=== PATIENT | male | born 1955 | race African-American/Black ===

== ENCOUNTER → 2016-08-10 | Outpatient (CLI) | payer BC ==
--- NOTE | 2016-08-10 12:16 | XR ---
Cervical spine HISTORY: Neck pain 5 views of the cervical spine on 6 images correlated to prior exam 30 Sep 2014 There is spondylosis especially at C4-5, C5-6 and C6-7 with associated loss of disc height as on prio r exam. Loss of lordosis is stable. Retrolisthesis grade 1 present at C5-6. Vacuum phenomenon present at C6-7. Prevertebral soft tissues are stable and unremarkable. Multilevel facet arthropathy. Forami nal encroachment present at C6-7, C5-C6 bilaterally and C4-5 right greater than left. IMPRESSION: Degenerative disc disease, facet arthropathy, multilevel foraminal encroachment as on bairon or exam. See report MR cervical spine 26 November 2014
== END ==
LOC: RADXRMAIN 10:50
PROVIDERS: ATTEND Internal Medicine
DX: M99.71 Connective tissue and disc stenosis of intervertebral foramina of cervical region (principal); M50.30 Other cervical disc degeneration, unspecified cervical region; M46.82 Other specified inflammatory spondylopathies, cervical region
CPT/HCPCS: 72050

== ENCOUNTER → 2017-02-18 | Outpatient (CLI) | payer BC ==
[2017-02-18 12:39] LABS: ALT 61 U/L (21-72); AST 41 U/L (17-59); Alkaline Phosphatase 55 U/L (38-126); Anion Gap 10 mmol/L; Bilirubin, Delta 0.2 mg/dL (0.0-0.2); Blood Urea Nitrogen 19 mg/dL (9-20); Carbon Dioxide 27 mmol/L (22-30); Chloride 105 mmol/L (98-107); Cholesterol 233 mg/dL (<200); Glucose 91 mg/dL (74-99); HDL Cholesterol 89 mg/dL (40-60); Non-African American GFR(MDRD) >60 (>60 ml/min/1.73 sqM); Potassium 4.6 mmol/L (3.5-5.1); Sodium 142 mmol/L (137-145); Total Bilirubin 0.9 mg/dL (0.2-1.3); Total Protein 7.7 g/dL (6.3-8.2)
[2017-02-18 13:09] LABS: Prostate Specific Antigen 3.85 ng/mL (0.00-4.00)
== END | disposition home or self-care (01) ==
LOC: LABWHC1 10:53
PROVIDERS: ATTEND Internal Medicine
DX: E78.5 Hyperlipidemia, unspecified (principal); I10 Essential (primary) hypertension; C61 Malignant neoplasm of prostate
CPT/HCPCS: 36415; 80051; 80061; 80076; 82565; 82947; 84153; 84520

== ENCOUNTER → 2017-11-14 | Outpatient (CLI) | payer BC | END | disposition home or self-care (01) | LOC: LABWHC1 08:27 | PROVIDERS: ATTEND Urology | DX: N40.1 Benign prostatic hyperplasia with lower urinary tract symptoms (principal); N13.8 Other obstructive and reflux uropathy | CPT/HCPCS: 36415; 84153 ==

== ENCOUNTER → 2019-06-24 | Outpatient (CLI) | payer BC ==
--- NOTE | 2019-06-24 10:08 | MR ---
EXAMINATION TYPE: MR cervical spine wo con DATE OF EXAM: 06/24/2019 COMPARISON: 08/25/2016 HISTORY: Cervical pain TECHNIQUE: Multiplanar, multisequence images of the cervical spine were acquired. C2-C3: Stable broad-based disc protrusion greater paracentrally to the left. Neural foramina remain p atent. Mild effacement of thecal sac. No Canal stenosis. Mild uncovertebral joint particularly. Findi ngs stable. C3-C4: Degenerative disc disease with broad-based central disc herniation abuts the anterior margin o f the spinal cord is mildly progressed from the prior exam. Uncovertebral joint hypertrophy with mild left and moderate to severe right foraminal encroachment. Greater right-sided facet arthropathy cont ributes. C4-C5: Severe degenerative disc disease with facet arthropathy and uncovertebral joint hypertrophy re sulting in mild to moderate bilateral foraminal encroachment. Disc osteophyte complex results in mild effacement of thecal sac and borderline canal stenosis. Findings are stable. C5-C6: Severe degenerative disc disease with broad-based disc bulging effacing the thecal sac and abu tting the anterior margin the spinal cord compatible with mild to moderate canal stenosis. Moderate t o severe bilateral foraminal encroachment greater than right with uncovertebral joint hypertrophy. Fi ndings similar to the prior exam. C6-C7: Severe degenerative disc disease with broad-based disc bulging. There is a moderate bilateral foraminal encroachment and borderline to mild central stenosis. No focal herniation. Findings similar to the prior exam. C7-T1: No evidence for degenerative disc disease. No disc bulge/herniation or protrusion. No Canal stenosis. Foramina are patent bilaterally. Cervical segments are intact. There is loss of the normal cervical lordosis with multilevel severe d egenerative disc disease, uncovertebral joint hypertrophy and facet arthropathy. Cervical spinal cor d is of normal signal. Craniovertebral junction relationships are within normal limits. IMPRESSION: 1. Multilevel severe degenerative disc disease with multilevel disc bulging or protrusions result in multilevel canal stenosis which appears similar to the prior exam. Multilevel foraminal encroachment also again noted. 2. There is interval mild progression of a broad-based disc herniation C3-C4 which abuts the anterior margin of the spinal cord.
== END | disposition home or self-care (01) ==
LOC: RADMRIMAIN 09:28
PROVIDERS: ATTEND Nurse Practitioner Adult Health
DX: M48.02 Spinal stenosis, cervical region (principal); M50.21 Other cervical disc displacement, high cervical region; M50.31 Other cervical disc degeneration, high cervical region
CPT/HCPCS: 72141

== ENCOUNTER → 2020-09-04 | Outpatient (CLI) | payer BC, MEDICARE ==
--- NOTE | 2020-09-04 17:00 | ECHOF ---
Referral Reason:R07.9 chest pain, R06.02 SOB, R22.41 MEASUREMENTS -------- HEIGHT: 165.1 cm WEIGHT: 69.9 kg BP: RVIDd: 2.7 cm (< 3.3) IVSd: 1.0 cm (0.6 - 1.1) LVIDd: 4.1 cm (3.9 - 5.3) LVPWd: 1.2 cm (0.6 - 1.1) IVSs: 1.2 cm LVIDs: 2.7 cm LVPWs: 1.5 cm LA Diam: 3.3 cm (2.7 - 3.8) LAESV Index (A-L): 38.79 ml/m Ao Diam: 2.6 cm (2.0 - 3.7) AV Cusp: 1.7 cm (1.5 - 2.6) LA Diam: 3.3 cm (2.7 - 3.8) MV EXCURSION: 16.095 mm (> 18.000) MV EF SLOPE: 82 mm/s (70 - 150) EPSS: 0.4 cm MV E Vipul: 0.75 m/s MV DecT: 204 ms MV A Vipul: 0.67 m/s MV E/A Ratio: 1.12 RAP: 5.00 mmHg RVSP: 29.70 mmHg FINDINGS -------- Sinus rhythm. This was a technically good study. LV size, wall thickness and systolic function are normal, with an EF greater than 55%. The left arpan tricular size is normal. The right ventricle is normal in size. LA is moderately dilated 34-39 ml/m2 The right atrial size is normal. The aortic valve is trileaflet, and appears structurally normal. No aortic stenosis or regurgitation. Mild mitral regurgitation is present. Mild tricuspid regurgitation present. Right ventricular systolic pressure is normal at < 35 mmHg. There is no pulmonic regurgitation present. The aortic root size is normal. There is no pericardial effusion. CONCLUSIONS -------- 1. LV size, wall thickness and systolic function are normal, with an EF greater than 55%. 2. The left ventricular size is normal. 3. The right ventricle is normal in size. 4. LA is moderately dilated 34-39 ml/m2 5. The right atrial size is normal. 6. The aortic valve is trileaflet, and appears structurally normal. No aortic stenosis or regurgitati on. 7. Mild mitral regurgitation is present. 8. Mild tricuspid regurgitation present. 9. The aortic root size is normal. 10. There is no pericardial effusion. BARREL CAP SETTER: Narda Alamo RDCS
== END | disposition home or self-care (01) ==
LOC: RADECHMAIN 14:54
PROVIDERS: ATTEND Internal Medicine
DX: I08.1 Rheumatic disorders of both mitral and tricuspid valves (principal)
CPT/HCPCS: 93306

== ENCOUNTER → 2021-03-30 | Outpatient (CLI) | payer BC | END | disposition home or self-care (01) | LOC: LABWHC1 11:10 | PROVIDERS: ATTEND Nurse Practitioner | DX: Z11.59 Encounter for screening for other viral diseases (principal); I10 Essential (primary) hypertension | CPT/HCPCS: 36415; 82947; 83036 ==

== ENCOUNTER → 2021-11-01 | Outpatient (CLI) | payer BC | END | disposition home or self-care (01) | LOC: LABWHC1 09:51 | PROVIDERS: ATTEND Urology | DX: R97.20 Elevated prostate specific antigen [PSA] (principal) | CPT/HCPCS: 36415; 84153 ==

== ENCOUNTER → 2022-06-17 | Outpatient (CLI) | payer BC ==
--- NOTE | 2022-06-17 15:29 | NM ---
EXAMINATION TYPE: NM bone scan whole body DATE OF EXAM: 06/17/2022 COMPARISON: NONE HISTORY: C6 T1 Delayed whole-body scanning was performed following the injection of 21.3 mCi Tc 99m MDP. Images wer e acquired 3.25 hours post injection. FINDINGS: Small amount of increased radiotracer accumulation is in the midline potentially could be related to the sagittal suture. There is mild uptake within the posterior right mid cervical spine. This can be degenerative in natur e. Mild diffuse uptake is within joint spaces. This may be more focal in the right first metatarsophalan geal joint space. No suspicious photopenic defects or suspicious hyperintense uptake is identified to suggest metastati c disease. IMPRESSION: 1. Mild uptake within the midline calvarium. Plain film correlation recommended. This may be related to sagittal suture. Metastatic disease is less likely but within the differential. 2. No additional suspicious areas for metastatic disease. Findings appear more suggestive for degener ative joint changes
== END | disposition home or self-care (01) ==
LOC: RADNMMAIN 10:19
PROVIDERS: ATTEND Urology
DX: C61 Malignant neoplasm of prostate (principal); R93.7 Abnormal findings on diagnostic imaging of other parts of musculoskeletal system
CPT/HCPCS: 78306; A9503

== ENCOUNTER → 2022-06-18 | Outpatient (CLI) | payer BC ==
--- NOTE | 2022-06-21 10:22 | MR ---
EXAMINATION TYPE: MR Prostate wo/w con DATE OF EXAM: 06/18/2022 9:08 AM COMPARISON: None. CLINICAL INDICATION:Male, 67 years old with history of C61 MALIGNANT NEOPLASM OF PROSTATE; TECHNIQUE: Multi-planar, multi-sequence imaging of the pelvis is performed prior to and following the uncomplicated administration of bolus intravenous gadolinium. CONTRAST: 7 Gadavist Interpretive Criteria: PI-RADS v2.1 SERUM PSA: 10.2 on 03/30/2021, 9.1 on 11/01/2021, SURGICAL PATHOLOGY: Positive adenocarcinoma multiple biopsy sites bilaterally. FINDINGS: Prostatic dimensions: 3.5 x 3.4 x 2.9 cm. "Bullet" Volume:22.59 (PSA density=0.40 ng/mL/mL) CENTRAL GLAND (Central and Transition Zones/CZ+TZ): Somewhat diffuse low T2 signal without focal suspicious lesion, without suspicious lesion. (PI-RADS 2 ) PERIPHERAL ZONE (PZ): No areas of diffusion restriction definitively visualized. No evidence of masslike abnormality, or localized perfusional hypervascularity, to further suggest a focus of clinically significant prostate cancer. (PI-RADS 2) SEMINAL VESICLES (SV): Symmetric and unremarkable. PERIPROSTATIC TISSUES: Unremarkable. LYMPH NODES: No enlarged pelvic lymph node. REMAINING PELVIS: Bladder wall is within normal limits given distention. No abnormal free or organized intrapelvic fluid collection. No pathologic bowel dilation or mural thickening. Nadia anal high T2 signal lesion with thin septation measuring up to 14 x 7 mm in the left external sp hincter muscle. OSSEOUS STRUCTURES: No suspicious osseous abnormality. IMPRESSION: 1. No specific features for high-risk prostate cancer. Maximum PI-RADS score: 2. 2. No suspicious osseous lesion. No lymphadenopathy. No evidence of prostate adenocarcinoma involving the periprostatic tissues. 3. Nadia anal high T2 signal lesion with thin septation measuring up to 14 x 7 mm in the left external sphincter muscle. This is only in the [id number] on T2-weighted imaging and is favored represent a cyst.
== END | disposition home or self-care (01) ==
LOC: RADMRIMAIN 07:58
PROVIDERS: ATTEND Urology
DX: C61 Malignant neoplasm of prostate (principal); N32.89 Other specified disorders of bladder
CPT/HCPCS: 72197; A9585

== ENCOUNTER → 2022-08-15 | Outpatient (CLI) | payer BC ==
[2022-08-15 18:13] LABS: Basophils # (A) 0.05 X 10*3/uL (0.00-0.10); Basophils % (A) 0.8 %; Eosinophils # (A) 0.19 X 10*3/uL (0.04-0.35); HCT 42.2 % (39.6-50.0); HGB 13.7 g/dL (13.0-17.0); Immature Grans, Automated 0.3 %; Lymphocytes # (A) 2.95 X 10*3/uL (0.90-5.00); Lymphocytes % (A) 45.9 %; MCH 32.7 pg (27.0-32.0); MCHC 32.5 g/dL (32.0-37.0); MCV 100.7 fL (80.0-97.0); Monocytes # (A) 0.69 X 10*3/uL (0.20-1.00); Monocytes % (A) 10.7 %; NRBC Per 100 WBC 0 /100 WBCS (0.0-0.0); Neutrophils # (A) 2.53 X 10*3/uL (1.80-7.70); Neutrophils % (A) 39.3 %; Platelet Count 190 X 10*3/uL (140-440); RBC 4.19 X 10*6/uL (4.40-5.60); RDW 13.3 % (11.5-14.5); WBC 6.43 X 10*3/uL (4.50-10.00)
[2022-08-15 18:59] LABS: African American GFR (CKD) 71.6 (60.0-200.0); Anion Gap 10.5 mmol/L (10.00-18.00); BUN/Creat Ratio 14.33 Ratio (12.00-20.00); Blood Urea Nitrogen 17.2 mg/dL (9.0-27.0); Carbon Dioxide 28.5 mmol/L (20.0-27.5); Non-African American GFR(CKD) 61.8 (60.0-200.0); Potassium 4.5 mmol/L (3.5-5.5)
[2022-08-15 19:34] LABS: Appearance,Urine Clear (Clear); Bilirubin,Urine Negative (Negative); Blood,Urine Negative (Negative); Color,Urine Yellow (Yellow); Ketones,Urine Negative (Negative); Nitrite,Urine Negative (Negative); PH, Urine 6.5 (5.0-8.0); Specific Gravity,Urine 1.015 (1.001-1.030); Urobilinogen,Urine 0.2 (0.2,1.0)
[2022-08-15 19:45] LABS: Bacteria,Urine 2+ /HPF (None Seen)
== END | disposition home or self-care (01) ==
LOC: LABPAT 11:56
PROVIDERS: ATTEND Urology
DX: Z01.812 Encounter for preprocedural laboratory examination (principal); C61 Malignant neoplasm of prostate; R31.29 Other microscopic hematuria; R53.83 Other fatigue
CPT/HCPCS: 80048; 81001; 85025; 87086

== ENCOUNTER 2022-08-25 05:52 | Observation (INO) | payer BC, MEDICARE ==
--- NOTE | 2022-08-16 12:57 | P.HPIHPCON ---
History of Present Illness H&P Date: 08/16/22 Chief Complaint: Prostate cancer This is a 67 -year-old male with history of high volume [place] 6 (3+3)prostate cancer, initially managed with active surveillance, repeat biopsy there was increased volume of disease. . I discussed with him for his prostate cancer the option of radiation, continued active surveillance versus robotic prostatectomy. Surgery were discussed with him in detail. He agreed to proceed with a robotic radical prostatectomy Discussed with him the risk which includes but not limited to bleeding, infection, urinary incontinence, erectile dysfunction, strictures, potential of cancer recurrence. Potential of needing additional treatments. Discussed also potential of injury to nearby organs which includes but not limited to the bladder, rectum, bowel. Risk of anesthesia was discussed with him which includes but not limited to, heart attack, stroke, blood clots. He understood all the risk and agreed to proceed Consent for Procedure: I have explained the operation/procedure to the patient, including the risks, b enefits, side effects, alternative therapies (including not receiving the proposed treatment or service), the likelihood of the patient achieving his/her goals, and potential recuperation problems for the procedure/sedation/analgesia, as well as any blood products, if indicated. I also explained to the patient the risks, benefits and side effects of the alternatives, as well as the risks related to not receiving the proposed procedure, care, treatment, or services. Surgical - Exam - General no distress, no pain - Eyes normal ocular movement, no pale - ENT normal nares, normal mucosa - Respiratory normal expansion, normal respiratory effort - Abdomen Abdomen: soft, non tender - Psychiatric oriented to time, oriented to person, oriented to place Assessment and Plan Assessment: OR for robotic radical prostatectomy
[2022-08-23 12:50] VITALS: BMI 24.2
[~2022-08-25 05:52] MED LIST: CLINDAMYCIN 600 MG in DEXTROSE 5% IN WATER 50 ML IVPB PRN; GENTAMICIN 120 MG in SODIUM CHLORIDE 0.9% 100 ML IVPB PRN; HEPARIN SODIUM,PORCINE/PF 5,000 UNIT/0.5 ML SYRINGE SQ PRN
[2022-08-25] MEDS: LACTATED RINGERS 1,000 ML IV SCH ×3 (06:35→07:27)
[2022-08-25] MEDS ORDERED: ONDANSETRON 4 MG/2 ML VIAL ONE (06:51)
[2022-08-25] MEDS ORDERED: MIDAZOLAM 2 MG/2 ML VIAL IVP ONE (06:56)
[2022-08-25] MEDS ORDERED: DEXAMETHASONE SOD PHOSPHATE 4 MG/ML 1 ML VIAL IVP ONE (07:12)
[2022-08-25] MEDS ORDERED: PROPOFOL 10 MG/ML 20 ML VIAL IV ONE (07:24)
[2022-08-25] MEDS ORDERED: LIDOCAINE 2% INJ 20 MG/ML (2 ML VIAL) ONE (07:24)
[2022-08-25] MEDS ORDERED: MIDAZOLAM 2 MG/2 ML VIAL ONE (07:24)
[2022-08-25] MEDS ORDERED: PHENYLEPHRINE-0.9% NACL SYG 1,000 MCG/10 ML SYRINGE ONE (07:24)
[2022-08-25] MEDS ORDERED: GLYCOPYRROLATE 0.2 MG/ML 2 ML VIAL ONE (07:24)
[2022-08-25] MEDS ORDERED: SUGAMMADEX SODIUM 500 MG/5 ML SDV IV ONE (07:24)
[2022-08-25] MEDS ORDERED: ePHEDrine 50 MG/ML 1 ML VIAL ONE (07:24)
[2022-08-25] MEDS ORDERED: fentaNYL (PF) 50 MCG/ML 2 ML AMP ONE (07:24)
[2022-08-25] MEDS ORDERED: ROCURONIUM 10 MG/ML (5 ML VIAL) IV ONE (07:24)
[2022-08-25] MEDS ORDERED: SUCCINYLCHOLINE CHLORIDE 200 MG/10 ML VIAL IV ONE (07:24)
[2022-08-25] MEDS ORDERED: BUPIVACAINE (PF) 0.25% 30 ML VIAL SQ ONE ×2 (09:16)
[2022-08-25] MEDS ORDERED: LACTATED RINGERS 1,000 ML IV ONE (10:36)
[2022-08-25] MEDS: HYDROmorphone 0.5 MG/0.5 ML SYRINGE IVP PRN ×3 (12:15→13:29)
--- NOTE | 2022-08-25 12:22 | P.OP ---
Date of Procedure: 08/25/22 Preoperative Diagnosis: Prostate cancer Postoperative Diagnosis: Same Procedure(s) Performed: Robotic-assisted laparoscopic radical prostatectomy Implants: none Anesthesia: STANISLAV Surgeon: Ryan Ramon Estimated Blood Loss (ml): 200 Pathology: other (prostate and bilateral seminal vesicles) Condition: stable Disposition: PACU Indications for Procedure: This is a 67 -year-old male with history of high volume [place] 6 (3+3)prostate cancer, initially managed with active surveillance, repeat biopsy there was increased volume of disease. . I discussed with him for his prostate cancer the option of radiation, continued active surveillance versus robotic prostatectomy. Surgery were discussed with him in detail. He agreed to proceed with a robotic radical prostatectomy Discussed with him the risk which includes but not limited to bleeding, infection, urinary incontinence, erectile dysfunction, strictures, potential of cancer recurrence. Potential of needing additional treatments. Discussed also potential of injury to nearby organs which includes but not limited to the bladder, rectum, bowel. Risk of anesthesia was discussed with him which includes but not limited to, heart attack, stroke, blood clots. He understood all the risk and agreed to proceed Description of Procedure: After preoperative antibiotics were started, the patient was taken to the operating room. Anesthesia was induced and the patient was placed in a low lithitomy position, with adequate padding of the pressure points, shoulders, back, legs and arms. He was then prepped and draped in the standard fashion. A critical pause was performed using two patient identifiers. A 16F avalos catheter was placed to gravity drainage. A pneumo-peritoneum was created with placement of a Veress needle to 20 mm Hg without complication, and a 8 Fr trocar was placed above the umbillicus. Under direct vision a 8mm robotic ports was placed lateral to each rectus slightly below the camera port. The left iliac fossa 8mm port was placed. The right trading assistant right iliac fossa 12mm port and right paramedian 5mm portwere placed. After the patient was placed in the trendelenberg position, the robot was then docked to the 8mm robotic ports and then each robotic arm and tower was checked in relation to the patient's legs and hands to avoid inadvertent compression. The peritoneal cavity was inspected. An inverted U-shaped incision began laterally to the left medial umbilical ligament and extended high across the midline to the right umbilical ligament. The limbs of the "U" extended to the level of the vasa on both sides. We next developed the preperitoneal space and the space of Retzius. Cautery was used to dissected the bladder away from the prostate. After the anterior bladder neck was incised and the bladder entered the the posterior bladder neck was exposed and the ureteral orifces identified. The posterior bladder neck was then incised and dissected away from the prostate. The vas and the seminal vesicles were now exposed and dissected to their insertions into the prostate and were not spared. The posterior layer of the Denonvillier's fascia was incised to enter pearl the plane between prostate and perirectal fat. Each lateral pedicle was controlled with clips and cautery for hemostasis. Complete nerve preservation was performed bilaterally. Of note patient had significant amount of fibrosis posteriorly which made the dissection very challenging, as there was no clear anatomical plane for the dissection The puboprostatic ligament was incised where it inserted into the apex of the prostate and a plane between urethra and dorsal venous complex developed to expose the anterior urethral surface. The anterior wall of the urethra was transected with the cut setting a few millimeters distal to the apex of the prostate. The dorsal vein was ligated using 3-0 V lock The urethrovesical anastomosis was performed . the posterior denovillers was reapproximated using 3-0 V lock. A 6 and 6 inch 3-0 V-Lock suture was used to anastomose the urethra and bladder, starting at the 6:00 posterior position. Mucosa was secured in every stitch, to ensure a mucosa to mucosa anastomosis. The stitch was regularly cinched and the anastomosis tightened. Care was taken to not violate the ureteral orifices. The Avalos catheter was advanced, the bladder filled, and the anastomosis was tested, as described above. Anastomsis was watertight at 200 mL The periumbilical fascia was closed with 1-0-PDS suture in running fashion. All ports were closed with a subcuticular 4-0 monocryl and Dermabond. Sponge, instrument, and needle counts were correct at the end of the case x2. All specimens including prostate and lymph nodes were sent to pathology for diagnosis and will be available in a week. The patient tolerated the surgery well and without complication. He awoke without difficulty and was taken to the recovery room in stable condition
[2022-08-25] MEDS: D5-0.45% NACL WITH KCL 20MEQ/L 1,000 ML IV SCH ×2 (14:09→21:43)
[2022-08-25] MEDS: HYDROmorphone 1 MG/ML 1 ML SYRINGE IVP PRN ×3 (15:45→22:48)
[2022-08-25] MEDS: HEPARIN SODIUM,PORCINE/PF 5,000 UNIT/0.5 ML SYRINGE SQ SCH ×2 (15:47→23:52)
--- NOTE | 2022-08-25 16:37 | P.ANPRN ---
Procedure Note - Anesthesia - Nerve Block Performed Bilateral Erector Spinae Single Time Out Performed: Yes Date of Procedure: 08/25/22 Procedure Start Time: 06:55 Procedure Stop Time: 07:02 Location of Patient: PreOp Indication: Acute Post-Operative Pain, Requested by Surgeon Sedation Type: Sedate with meaningful contact maintained Preparation: Sterile Prep Position: Prone Needle Types: Pajunk Needle Gauge: 21 Ultrasound used to visualize needle placement: Yes Ultrasound used to observe medication spread: Yes Blood Aspirated: No Pain Paresthesia on Injection Noted: No Resistance on Injection: Normal Image Stored and Saved: Yes Events: Uneventful and Well Tolerated (Ropivacaine 0.5% 15 mL plus normal saline 10 mL plus dexamethasone 4 mg given bilaterally at L1)
[2022-08-25] MEDS: KETOROLAC 15 MG/ML 1 ML VIAL IVP SCH ×2 (17:45→23:51)
[2022-08-25] MEDS: NITROFURANTOIN MONOHYD/M-CRYST 100 MG CAP PO SCH (19:54)
[2022-08-26] MEDS: D5-0.45% NACL WITH KCL 20MEQ/L 1,000 ML IV SCH ×3 (05:24→20:48)
[2022-08-26] MEDS: KETOROLAC 15 MG/ML 1 ML VIAL IVP SCH ×4 (05:24→23:41)
[2022-08-26] MEDS: HEPARIN SODIUM,PORCINE/PF 5,000 UNIT/0.5 ML SYRINGE SQ SCH ×3 (08:35→23:41)
[2022-08-26] MEDS: amLODIPine 5 MG TAB PO SCH (08:35)
[2022-08-26] MEDS: NITROFURANTOIN MONOHYD/M-CRYST 100 MG CAP PO SCH ×2 (08:35→20:48)
[2022-08-26] MEDS: METOPROLOL TARTRATE 25 MG TAB PO SCH (08:35)
[2022-08-26] MEDS: HYDROmorphone 1 MG/ML 1 ML SYRINGE IVP PRN (10:30)
[2022-08-26] MEDS ORDERED: HYDROcodone/APAP 5-325MG 1 EACH TAB PO PRN (11:00)
[2022-08-26] MEDS: LACTATED RINGERS 1,000 ML IV SCH (20:44)
[2022-08-27 02:19] VITALS: TEMP 98.6
[2022-08-27] MEDS: D5-0.45% NACL WITH KCL 20MEQ/L 1,000 ML IV SCH (04:04)
[2022-08-27] MEDS: KETOROLAC 15 MG/ML 1 ML VIAL IVP SCH (05:44)
[2022-08-27 08:17] VITALS: BP 148/85; PULSE 80; RESP 17
[2022-08-27] MEDS: HEPARIN SODIUM,PORCINE/PF 5,000 UNIT/0.5 ML SYRINGE SQ SCH (09:41)
[2022-08-27] MEDS: amLODIPine 5 MG TAB PO SCH (09:41)
[2022-08-27] MEDS: METOPROLOL TARTRATE 25 MG TAB PO SCH (09:41)
[2022-08-27] MEDS: NITROFURANTOIN MONOHYD/M-CRYST 100 MG CAP PO SCH (09:41)
--- NOTE | 2022-08-27 09:52 | P.DS ---
Providers Date of admission: 08/26/22 08:07 Attending physician: Ryan Ramon MD Primary care physician: Nicholas Fiore [facility] Course: This is a 67-year-old male with history of prostate cancer. Underwent a robotic radical prostatectomy on August 25. Please see operative dated August 25 for surgery details. Patient was admitted to the hospital postoperatively. He was having incision pain on postoperative day #1, which was controlled with pain medications. Patient pain significantly improved on postop day #2 and he was discharged home on postop day #2. At time of discharge was tolerating a diet, ambulating, pain was controlled Plan - Discharge Summary Discharge Rx Participant: No New Discharge Prescriptions: New Ketorolac [Toradol] 10 mg PO Q6HR PRN #15 tab PRN Reason: Pain HYDROcodone/APAP 5-325MG [Sherwood 5-325] 1 tab PO Q4HR PRN 3 Days #6 tab PRN Reason: Pain Ciprofloxacin HCl [Cipro] 250 mg PO Q12HR #6 tablet No Action amLODIPine [Norvasc] 5 mg PO QAM Metoprolol Tartrate 25 mg PO QAM Nitrofurantoin Monohyd/M-Cryst [Macrobid] 100 mg PO BID Discharge Medication List Metoprolol Tartrate 25 mg PO QAM 08/23/22 [History] Nitrofurantoin Monohyd/M-Cryst [Macrobid] 100 mg PO BID 08/23/22 [History] amLODIPine [Norvasc] 5 mg PO QAM 08/23/22 [History] Ciprofloxacin HCl [Cipro] 250 mg PO Q12HR #6 tablet 08/26/22 [Rx] HYDROcodone/APAP 5-325MG [Sherwood 5-325] 1 tab PO Q4HR PRN 3 Days #6 tab 08/26/22 [Rx] Ketorolac [Toradol] 10 mg PO Q6HR PRN #15 tab 08/26/22 [Rx] Activity/Diet/Wound Care/Special Instructions: Increase fluid intake It is normal to see blood in the urine Avoid heavy greasy meals No heavy lifting or straining You may shower tomorrow, no baths Start your Cipro antibiotics one day prior to your follow-up appointment
== END 2022-08-27 11:43 | disposition home or self-care (01) ==
LOC: OR 05:52 → 5NMEDONC 13:23 → OR 08-26 08:07
PROVIDERS: ADMIT Urology; ATTEND Urology
DX: C61 Malignant neoplasm of prostate (principal); Z79.899 Other long term (current) drug therapy; I10 Essential (primary) hypertension; Z98.49 Cataract extraction status, unspecified eye; Z97.2 Presence of dental prosthetic device (complete) (partial); Z88.0 Allergy status to penicillin
CPT/HCPCS: 55866; 64999; 76942; 86900; 86901; 86850; G0378 ×3; C1762; J2250; J0330; J1100; J2405; J3010; J1580; J1170 ×3; J1885 ×3; J2370; J2704; J1644 ×3; J2001

== ENCOUNTER 2022-09-05 13:58 | Observation (INO) | payer BC ==
[2022-09-05] MEDS ORDERED: HEPARIN SODIUM 1,000 UN/ML (10ML VL) IV ONE (14:18)
[2022-09-05] MEDS ORDERED: HEPARIN SODIUM 1,000 UN/ML (10ML VL) IV PRN (14:18)
--- NOTE | 2022-09-05 14:20 | ED ---
General Adult HPI - General Chief complaint: Chest Pain Stated complaint: sob, abn CT Time Seen by Provider: 09/05/22 14:04 Source: patient, family, RN/MD (Radiologist), RN notes reviewed Mode of arrival: ambulatory Limitations: no limitations - History of Present Illness Initial comments: Patient is a pleasant 67-year-old male presenting to the emergency department from radiology department. I did receive a call from radiologist with concern for right-sided pulmonary embolism. Patient states he did have recent surgery, 10 days ago for prostatectomy for prostate cancer. Patient has been doing fine for that. Patient has some mild right-sided chest discomfort the past day or so with associated dyspnea, dyspnea worsens with speech. No leg pain or leg swelling. No history of similar symptoms previously. - Related Data Home Medications Medication Instructions Recorded Confirmed Metoprolol Tartrate 25 mg PO BID 08/23/22 09/05/22 amLODIPine [Norvasc] 5 mg PO DAILY 08/23/22 09/05/22 Lifitegrast [Xiidra] 1 dropper BOTH EYES BID 09/05/22 09/05/22 tadalafiL [Cialis] 20 mg PO Q48H PRN 09/05/22 09/05/22 Previous Rx's Medication Instructions Recorded Ciprofloxacin HCl [Cipro] 250 mg PO Q12HR #6 tablet 08/26/22 HYDROcodone/APAP 5-325MG [[place] 1 tab PO Q4HR PRN 3 Days #6 tab 08/26/22 5-325] Ketorolac [Toradol] 10 mg PO Q6HR PRN #15 tab 08/26/22 Allergies Allergy/AdvReac Type Severity Reaction Status Date / Time Penicillins Allergy Swelling Verified 09/05/22 14:37 Review of Systems ROS Statement: Those systems with pertinent positive or pertinent negative responses have been documented in the HPI. ROS Other: All systems not noted in ROS Statement are negative. Constitutional: Denies: fever Eyes: Denies: eye pain ENT: Denies: ear pain Respiratory: Reports: as per HPI, dyspnea Cardiovascular: Reports: as per HPI Endocrine: Denies: fatigue Gastrointestinal: Denies: abdominal pain Genitourinary: Denies: dysuria Musculoskeletal: Denies: back pain Skin: Denies: rash Neurological: Denies: weakness Past Medical History Past Medical History: Cancer, Hypertension, Osteoarthritis (OA) Additional Past Medical History / Comment(s): Current prostate cancer. Current UTI, on antibiotics prescribed by Dr Ramon, to be completed 08/24/22. History of Any Multi-Drug Resistant Organisms: None Reported Additional Past Surgical History / Comment(s): Cataract surgery, finger surgery, edidural pain injection in back. Past Anesthesia/Blood Transfusion Reactions: No Reported Reaction Past Psychological History: No Psychological Hx Reported Smoking Status: Never smoker Past Alcohol Use History: Rare Past Drug Use History: None Reported - Past Family History Mother Family Medical History: Cancer Father Family Medical History: Cancer General Exam Limitations: no limitations General appearance: alert, in no apparent distress Head exam: Present: atraumatic Eye exam: Present: normal appearance Neck exam: Present: normal inspection Respiratory exam: Present: normal lung sounds bilaterally. Absent: chest wall tenderness Cardiovascular Exam: Present: regular rate, normal rhythm Expanded Peripheral pulses: 2+: Radial (R), Radial (L), Dorsalis Pedis (R), Dorsalis Pedis (L) GI/Abdominal exam: Present: soft. Absent: tenderness Extremities exam: Present: normal inspection. Absent: pedal edema, calf tenderness Neurological exam: Present: alert Psychiatric exam: Present: normal affect, normal mood Skin exam: Present: normal color Course Vital Signs 09/05/22 14:01 Temperature 98 F Pulse Rate 67 Respiratory 18 Rate Blood Pressure 139/85 O2 Sat by Pulse 98 Oximetry EKG Findings - EKG Results: EKG: interpreted by ERMD, sinus rhythm, normal axis, normal QRS, normal ST/T Medical Decision Making - Medical Decision Making Was pt. sent in by a medical professional or institution (, PA, CLINICAL LABORATORY TECHNICIAN, urgent care, hospital, or [facility]...) When possible be specific @ -Patient was sent from radiologist and radiology Department Did you speak to anyone other than the patient for history (EMS, parent, family, police, friend...)? What history was obtained from this source @ -Radiologist's help provide history and CT results Did you review nursing and triage notes (agree or disagree)? Why? @ -I reviewed and agree with nursing and triage notes Were old charts reviewed (outside hosp., previous admission, EMS record, old EKG, old radiological studies, urgent care reports/EKG's, [facility] records)? Report findings @ -Reviewed radiology report from outpatient computed tomography scan Differential Diagnosis (chest pain, altered mental status, abdominal pain women, abdominal pain men, vaginal bleeding, weakness, fever, dyspnea, syncope, headache, dizziness, GI bleed, back pain, seizure, CVA, palpatations, mental health)? @ -Differential Dyspnea: Coronary syndrome, arrhythmia, tamponade, asthma, COPD, pulmonary embolism, pn eumonia, pneumothorax, pulmonary effusion, anaphylaxis, diabetic ketoacidosis, flailed chest, pulmonary contusion, diaphragmatic rupture, anemia, neuromuscular, this is not meant to be an all-inclusive list. EKG interpreted by me (3pts min.). @ -As above X-rays interpreted by me (1pt min.). @ -None done CT interpreted by me (1pt min.). @ -Report reviewed U/S interpreted by me (1pt. min.). @ -None done What testing was considered but not performed or refused? (CT, X-rays, U/S, labs)? Why? @ -None What meds were considered but not given or refused? Why? @ -None Did you discuss the management of the patient with other professionals (professionals i.e. , PA, CLINICAL LABORATORY TECHNICIAN, lab, RT, psych nurse, social media specialist, business writer, teacher, chief wellness officer, community case manager)? Give summary @ -Case discussed with Dr. Messina with [facility] who will admit covering Dr. espinal Was smoking cessation discussed for >3mins.? @ -No Was critical care preformed (if so, how long)? @ -32 minutes critical care Were there social determinants of health that impacted care today? How? (Homelessness, low income, unemployed, alcoholism, drug addiction, transportation, low edu. Level, literacy, decrease access to med. care, prison, rehab)? @ -No Was there de-escalation of care discussed even if they declined (Discuss DNR or withdrawal of care, Hospice)? DNR status @ -No What co-morbidities impacted this encounter? (DM, HTN, Smoking, COPD, CAD, Cancer, CVA, ARF, Chemo, Hep., AIDS, mental health diagnosis, sleep apnea, morbid obesity)? @ -None Was patient admitted / discharged? Hospital course, mention meds given and route, prescriptions, significant lab abnormalities, going to OR and other pertinent info. @ -Patient and family are updated on results and plan. Patient will be started on heparin and will be monitoring this. Patient will be admitted Undiagnosed new problem with uncertain prognosis? @ -No Drug Therapy requiring intensive monitoring for toxicity (Heparin, Nitro, Insulin, Cardizem)? @ -Patient will be monitoring with heparin drip Were any procedures done? @ -No Diagnosis/symptom? @ -Pulmonary embolism Acute, or Chronic, or Acute on Chronic? @ -Acute Uncomplicated (without systemic symptoms) or Complicated (systemic symptoms)? @ -default Side effects of treatment? @ -No Exacerbation, Progression, or Severe Exacerbation? @ -No Poses a threat to life or bodily function? How? (Chest pain, [place], CA, pneumonia, PE, COPD, DKA, ARF, appy, cholecystitis, CVA, Diverticulitis, Homicidal, Suici tasha, threat to staff... and all critical care pts) @ -No - Lab Data Result diagrams: 09/05/22 14:18 Lab Results 09/05/22 Range/Units 14:18 WBC 12.5 H (3.8-10.6) k/uL RBC 4.11 L (4.30-5.90) m/uL Hgb 13.5 (13.0-17.5) gm/dL Hct 39.9 (39.0-53.0) % MCV 97.2 (80.0-100.0) fL MCH 32.9 (25.0-35.0) pg MCHC 33.9 (31.0-37.0) g/dL RDW 13.0 (11.5-15.5) % Plt Count 253 (150-450) k/uL MPV 6.9 Neutrophils % 72 % Lymphocytes % 19 % Monocytes % 5 % Eosinophils % 3 % Basophils % 0 % Neutrophils # 9.0 H (1.3-7.7) k/uL Lymphocytes # 2.4 (1.0-4.8) k/uL Monocytes # 0.6 (0-1.0) k/uL Eosinophils # 0.3 (0-0.7) k/uL Basophils # 0.1 (0-0.2) k/uL Critical Care Time Critical Care Time: Yes Total Critical Care Time: 32 Disposition Clinical Impression: Pulmonary embolism Disposition: ADMITTED IP TO THIS HOSP Is patient prescribed a controlled substance at d/c from ED?: No Referrals: Juan Peterson MD [Primary Care Provider] - 1-2 days Time of Disposition: 14:47
[2022-09-05] MEDS: HEPARIN SOD,PORK IN 0.45% NACL 25,000 UNIT in 0.45% NACL 1 250ML.BAG IV SCH (14:30)
[2022-09-05 14:31] LABS: Basophils # (A) 0.1 k/uL (0-0.2); Basophils % (A) 0 %; Eosinophils # (A) 0.3 k/uL (0-0.7); Eosinophils % (A) 3 %; HCT 39.9 % (39.0-53.0); HGB 13.5 gm/dL (13.0-17.5); Lymphocytes # (A) 2.4 k/uL (1.0-4.8); Lymphocytes % (A) 19 %; MCH 32.9 pg (25.0-35.0); MCHC 33.9 g/dL (31.0-37.0); MCV 97.2 fL (80.0-100.0); Mean Platelet Volume 6.9; Monocytes # (A) 0.6 k/uL (0-1.0); Monocytes % (A) 5 %; Neutrophils % (A) 72 %; Platelet Count 253 k/uL (150-450); RBC 4.11 m/uL (4.30-5.90); WBC 12.5 k/uL (3.8-10.6)
[2022-09-05] MEDS ORDERED: traMADol 50 MG TAB PO PRN (14:48)
[2022-09-05] MEDS ORDERED: NALOXONE 0.4 MG/ML 1 ML VIAL IV PRN (14:48)
[2022-09-05 14:57] LABS: Partial Thromboplastin Time 23.4 sec (22.0-30.0); Prothrombin Time 10.2 sec (9.0-12.0)
[2022-09-05 15:09] LABS: Albumin 4.2 g/dL (3.5-5.0); Calcium 9.4 mg/dL (8.4-10.2); Potassium 4.5 mmol/L (3.5-5.1); Total Bilirubin 0.8 mg/dL (0.2-1.3); Total Protein 7.1 g/dL (6.3-8.2)
--- NOTE | 2022-09-05 15:32 | P.HPIM ---
History of Present Illness H&P Date: 09/05/22 History of present illness; patient is 67-year-old gentleman with past medical history significant for prostate cancer who recently underwent robotic radical prostatectomy on August 25. Patient was all right 2 days when he started noticing right-sided chest pressure, it was associated with shortness of breath as well. Patient noticed that his voice was also worsening as he gets easily winded. Patient denied any swelling of lower extremities. There was no complain of orthopnea or PND. No complaint of fever or chills. Patient was sent to radiology to get a computed tomography scan, radiologist was concerned about PE and patient was sent into the ER. Initial lab work in the ER showed white count 12.5, hemoglobin 13.5, platelet count 253, INR 1.0, sodium 137, potassium 4.5, BUN 16, creatinine 1.08, Patient was admitted to internal medicine service for further evaluation and treatment REVIEW OF SYSTEMS: CONSTITUTIONAL: No fever, no malaise, no fatigue. HEENT: No recent visual problems or hearing problems. Denied any sore throat. CARDIOVASCULAR: No orthopnea, PND, no palpitations, no syncope. PULMONARY: no cough, no hemoptysis. GASTROINTESTINAL: No diarrhea, no nausea, no vomiting, no abdominal pain. NEUROLOGICAL: No headaches, no weakness, no numbness. HEMATOLOGICAL: Denies any bleeding or petechiae. GENITOURINARY: Denies any burning micturition, frequency, or urgency. MUSCULOSKELETAL/RHEUMATOLOGICAL: Denies any joint pain, swelling, or any muscle pain. ENDOCRINE: Denies any polyuria or polydipsia. The rest of the 14-point review of systems is negative. PHYSICAL EXAMINATION: GENERAL: The patient is alert and oriented x3, not in any acute distress. Well developed, well nourished. HEENT: Pupils are round and equally reacting to light. EOMI. No scleral icterus. No conjunctival pallor. Normocephalic, atraumatic. No pharyngeal erythema. No thyromegaly. CARDIOVASCULAR: S1 and S2 present. No murmurs, rubs, or gallops. PULMONARY: Chest is clear to auscultation, no wheezing or crackles. ABDOMEN: Soft, nontender, nondistended, normoactive bowel sounds. No palpable organomegaly. MUSCULOSKELETAL: No joint swelling or deformity. EXTREMITIES: No cyanosis, clubbing, or pedal edema. NEUROLOGICAL: Gross neurological examination did not reveal any focal deficits. SKIN: No rashes. Assessment and plan Acute PE History of prostate cancer status postrobotic radical prostatectomy Hypertension Plan; Monitor vital signs Monitor CBC Monitor CMP Continue pharmacy dose heparin Ordered ultrasound of lower extremities. Ordered 2-D echo Consult pulmonary Consult neurology Resume home meds Past Medical History Past Medical History: Cancer, Hypertension, Osteoarthritis (OA) Additional Past Medical History / Comment(s): Current prostate cancer. Current UTI, on antibiotics prescribed by Dr Ramon, to be completed 08/24/22. History of Any Multi-Drug Resistant Organisms: None Reported Additional Past Surgical History / Comment(s): Cataract surgery, finger surgery, edidural pain injection in back. Past Anesthesia/Blood Transfusion Reactions: No Reported Reaction Past Psychological History: No Psychological Hx Reported Smoking Status: Never smoker Past Alcohol Use History: Rare Past Drug Use History: None Reported - Past Family History Mother Family Medical History: Cancer Father Family Medical History: Cancer Medications and Allergies Home Medications Medication Instructions Recorded Confirmed Type Metoprolol Tartrate 25 mg PO BID 08/23/22 09/05/22 History amLODIPine [Norvasc] 5 mg PO DAILY 08/23/22 09/05/22 History Ciprofloxacin HCl [Cipro] 250 mg PO Q12HR #6 tablet 08/26/22 09/05/22 Rx HYDROcodone/APAP 5-325MG [[place] 1 tab PO Q4HR PRN 3 Days #6 tab 08/26/22 09/05/22 Rx 5-325] Ketorolac [Toradol] 10 mg PO Q6HR PRN #15 tab 08/26/22 09/05/22 Rx Lifitegrast [Xiidra] 1 dropper BOTH EYES BID 09/05/22 09/05/22 History tadalafiL [Cialis] 20 mg PO Q48H PRN 09/05/22 09/05/22 History Allergies Allergy/AdvReac Type Severity Reaction Status Date / Time Penicillins Allergy Swelling Verified 09/05/22 14:37 Physical Exam Vitals: Vital Signs Temp Pulse Resp BP Pulse Ox 09/05/22 14:01 98 F 67 18 139/85 98 Intake and Output 09/05/22 09/05/22 09/05/22 06:59 14:59 22:59 Other: Weight 68.039 kg Results CBC & Chem 7: 09/05/22 14:18 09/05/22 14:18 Labs: Abnormal Lab Results - Last 24 Hours (Table) 09/05/22 Range/Units 14:18 WBC 12.5 H (3.8-10.6) k/uL RBC 4.11 L (4.30-5.90) m/uL Neutrophils # 9.0 H (1.3-7.7) k/uL
[2022-09-05] MEDS ORDERED: HYDROcodone/APAP 5-325MG 1 EACH TAB PO PRN (15:45)
[2022-09-05] MEDS: SODIUM CHLORIDE 0.9% 1,000 ML IV SCH (16:11)
--- NOTE | 2022-09-05 20:19 | US ---
EXAMINATION TYPE: US venous doppler duplex LE BI DATE OF EXAM: 09/05/2022 7:43 PM COMPARISON: NONE CLINICAL INDICATION: Male, 67 years old with history of Swelling; Diagnosed with PE today SIDE PERFORMED: Bilateral TECHNIQUE: The lower extremity deep venous system is examined utilizing real time linear array sonog daisy with graded compression, doppler sonography and color-flow sonography. VESSELS IMAGED: Common Femoral Vein Deep Femoral Vein Greater Saphenous Vein * Femoral Vein Popliteal Vein Small Saphenous Vein * Proximal Calf Veins (* superficial vessels) Right Leg: Negative for DVT Left Leg: Negative for DVT IMPRESSION: 1. Bilateral lower extremity ultrasound negative for deep venous thrombosis.
[2022-09-05] MEDS: FAMOTIDINE 20 MG TAB PO SCH (20:44)
[2022-09-05] MEDS: METOPROLOL TARTRATE 25 MG TAB PO SCH (20:44)
[2022-09-05] MEDS: NON FORMULARY DRUG (Lifitegrast [Xiidra] 1 EACH Droperette) BOTH EYES SCH (20:45)
--- NOTE | 2022-09-06 03:23 | P.CNPUL ---
History of Present Illness Consult date: 09/06/22 Requesting physician: Oracio Lowery Reason for consult: pulmonary embolism Chief complaint: Shortness of breath and right-sided chest pain History of present illness: I'm seeing this patient in new consultation today 09/06/2022, while in the emergency room for a pulmonary embolism. Patient is a 67-year-old - [place] male with past medical history of prostate cancer with recent prostatectomy on August 25, hypertension, GERD. Patient started experiencing shortness of breath and right-sided chest pressure soon after his prostatectomy. Patient's symptoms have progressively worsened, and patient was sent to the hospital yesterday. Patient denies any previous DVT or PE, clotting disorders, recent travel, or family history of DVT or PE. Patient's chest CTA showed several pulmonary emboli within the right main pulmonary artery extending into the segmental branches of the right middle and lower lobes. There is no evidence of heart strain. Troponins negative 1. Bilateral lower extremity venous Doppler negative for DVTs. Echocardiogram is pending. ECG showed normal sinus rhythm without any ischemic changes. Patient is currently resting comfortably, on room air, in no acute distress. Patient has a high intensity heparin infusion running per protocol, currently infusing at 1021 units per hour. Patient's CBC on arrival shows a WBC count of 12.5, hemoglobin 13.5, hematocrit 39.9, platelets 253,000. Patient's BMP was unremarkable. Normal saline infusing at KVO. Vital signs are stable. Review of Systems REVIEW OF SYSTEMS: CONSTITUTIONAL: Denies any recent significant weight loss or weight gain. EYES: Denies change in vision. EARS, NOSE, MOUTH, THROAT: Denies headaches, denies sore throat. CARDIOVASCULAR: Denies palpitations or syncopal episodes. RESPIRATORY: Denies cough, congestion or hemoptysis. Admits shortness of breath and right-sided pleuritic chest pain that is worse with coughing GASTROINTESTINAL: Denies change in appetite, abdominal pain, nausea and vomiting, or diarrhea GENITOURINARY: Denies hematuria, denies infections. MUSKULOSKELETAL: Denies pain, denies swelling. INTEGUMENTARY: Denies rash, denies eczema. NEUROLOGICAL: Denies recent memory loss, no recent seizure activity. PSYCHIATRIC: Denies anxiety, denies depression. HEMATOLOGIC/LYMPHATIC: Denies anemia, denies enlarged lymph node Past Medical History Past Medical History: Cancer, Hypertension, Osteoarthritis (OA) Additional Past Medical History / Comment(s): Current prostate cancer. Current UTI, on antibiotics prescribed by Dr Ramon, to be completed 08/24/22. History of Any Multi-Drug Resistant Organisms: None Reported Additional Past Surgical History / Comment(s): Cataract surgery, finger surgery, edidural pain injection in back. Past Anesthesia/Blood Transfusion Reactions: No Reported Reaction Past Psychological History: No Psychological Hx Reported Smoking Status: Never smoker Past Alcohol Use History: Rare Past Drug Use History: None Reported - Past Family History Mother Family Medical History: Cancer Father Family Medical History: Cancer Medications and Allergies Home Medications Medication Instructions Recorded Confirmed Type Metoprolol Tartrate 25 mg PO BID 08/23/22 09/05/22 History amLODIPine [Norvasc] 5 mg PO DAILY 08/23/22 09/05/22 History Ciprofloxacin HCl [Cipro] 250 mg PO Q12HR #6 tablet 08/26/22 09/05/22 Rx HYDROcodone/APAP 5-325MG [[place] 1 tab PO Q4HR PRN 3 Days #6 tab 08/26/22 09/05/22 Rx 5-325] Ketorolac [Toradol] 10 mg PO Q6HR PRN #15 tab 08/26/22 09/05/22 Rx Lifitegrast [Xiidra] 1 dropper BOTH EYES BID 09/05/22 09/05/22 History tadalafiL [Cialis] 20 mg PO Q48H PRN 09/05/22 09/05/22 History Allergies Allergy/AdvReac Type Severity Reaction Status Date / Time Penicillins Allergy Swelling Verified 09/05/22 14:37 Physical Exam Vitals: Vital Signs Temp Pulse Resp BP Pulse Ox 09/05/22 23:00 60 15 109/92 100 09/05/22 20:27 65 15 104/65 100 09/05/22 17:25 76 18 120/90 99 09/05/22 14:01 98 F 67 18 139/85 98 Intake and Output 09/05/22 09/05/22 09/06/22 14:59 22:59 06:59 Intake Total 92.465 0 Balance 92.465 0 Intake: Intake, IV Titration 92.465 0 Amount Heparin Sod,Pork in 0.45% 92.465 0 NaCl 25,000 unit In 0.45 % NaCl 1 250ml.bag @ 18 UNITS/KG/HR 12.247 mls/hr IV .[id number] [facility] Rx#: [id number] Other: Weight 68.039 kg GENERAL EXAM: Alert, 67-year-old -[place] male, comfortable in no apparent distress. HEAD: Normocephalic and atraumatic EYES: Normal reaction of pupils, equal size. NOSE: Clear with pink turbinates. THROAT: No erythema or exudates. NECK: No masses, no JVD. CHEST: No chest wall deformity. LUNGS: Equal air entry with no crackles, wheeze, rhonchi or dullness. On room air. No conversational dyspnea or accessory muscle use.. CVS: S1 and S2 normal with no audible murmur, regular rhythm. No extra heart sounds ABDOMEN: No hepatosplenomegaly, active bowel sounds, no guarding or rigidity. SPINE: No scoliosis or deformity SKIN: No rashes CENTRAL NERVOUS SYSTEM: No focal deficits, tone is normal in all 4 extremities. EXTREMITIES: There is no peripheral edema, clubbing, or cyanosis. Peripheral pulses are intact. Results - Laboratory Findings CBC and BMP: 09/06/22 04:50 09/06/22 04:50 PT/INR, D-dimer PT 10.2 sec (9.0-12.0) 09/05/22 14:18 INR 1.0 (<1.2) 09/05/22 14:18 Abnormal lab findings: Abnormal Labs 09/05/22 09/05/22 14:18 20:03 WBC 12.5 H RBC 4.11 L Neutrophils # 9.0 H APTT 122.4 H* - Diagnostic Findings CT scan - chest: image reviewed Assessment and Plan Assessment: Acute right-sided pulmonary embolism. Patient's chest CTA showed several pulmonary emboli within the right main pulmonary artery extending into the segmental branches of the right middle and lower lobes. No evidence of right heart strain. Hypertension History of prostate cancer with recent robotic radical prostatectomy on August 25. 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 Number of minutes spent on the visit:20 Joint evaluation done along with [employer]. The patient has pulmonary embolism without evidence of any RV strain or pulmonary hypertension. Hemodynamically stable. Is on room air oxygen. No sinus tachycardia. This occurred in the setting of surgery as the patient underwent prostatectomy/radical prostatectomy on 08/25/2022 and the patient was rather sedentary at home. This could have been the provoking factor. The patient is going to need anticoagulation. We'll start IV heparin. I'm going to put him on anticoagulation with Eliquis starting with 10 mg twice a day to be changed to 5 mg twice a day in one week. The patient was seen in the emergency department. This evaluation was done in > 30 min Time with Patient: Greater than 30
[2022-09-06 05:34] LABS: Basophils # (A) 0.1 k/uL (0-0.2); Basophils % (A) 1 %; Eosinophils # (A) 0.2 k/uL (0-0.7); Eosinophils % (A) 3 %; HGB 12.9 gm/dL (13.0-17.5); Lymphocytes # (A) 2.5 k/uL (1.0-4.8); Lymphocytes % (A) 27 %; MCHC 34.9 g/dL (31.0-37.0); MCV 97.2 fL (80.0-100.0); Monocytes # (A) 0.5 k/uL (0-1.0); Monocytes % (A) 5 %; Neutrophils # (A) 5.7 k/uL (1.3-7.7); Neutrophils % (A) 63 %; Platelet Count 233 k/uL (150-450); RBC 3.81 m/uL (4.30-5.90)
[2022-09-06 05:48] LABS: Calcium 8.8 mg/dL (8.4-10.2); Potassium 4.7 mmol/L (3.5-5.1)
--- NOTE | 2022-09-06 09:05 | P.GSCN ---
History of Present Illness Consult date: 09/06/22 Reason for Consult: Post-op care s/p prostatectomy Requesting physician: Oracio Lowery History of present illness: The patient is a 68-year-old male with a history of high volume [place] 6 (3+3) prostate cancer, initially managed with active surveillance, repeat biopsy there was increased volume of disease. On 08/25/22 he underwent a robotic-assisted laparoscopic radical prostatectomy with Dr. Ramon. On 09/05/22 he had his follow-up appointment with Dr. Ramon and reported having right-sided pressure and shortness of breath. He was sent to the hospital and a CTA angiogram of the chest revealed several pulmonary emboli demonstrated within the right main pulmonary artery extending into the segmental branches of the right middle and lower lobes, no evidence of right heart strain. Bilateral venous duplex negative for DVT. Echocardiogram is pending. Review of Systems - Constitutional Denies chills, Denies fever - Cardiovascular Reports chest pain, Reports shortness of breath - Genitourinary Denies incontinence Past Medical History Past Medical History: Cancer, Hypertension, Osteoarthritis (OA) Additional Past Medical History / Comment(s): Current prostate cancer. Current UTI, on antibiotics prescribed by Dr Ramon, to be completed 08/24/22. History of Any Multi-Drug Resistant Organisms: None Reported Additional Past Surgical History / Comment(s): Cataract surgery, finger surgery, edidural pain injection in back. Past Anesthesia/Blood Transfusion Reactions: No Reported Reaction Past Psychological History: No Psychological Hx Reported Smoking Status: Never smoker Past Alcohol Use History: Rare Past Drug Use History: None Reported - Past Family History Mother Family Medical History: Cancer Father Family Medical History: Cancer Medications and Allergies Home Medications Medication Instructions Recorded Confirmed Type Metoprolol Tartrate 25 mg PO BID 08/23/22 09/05/22 History amLODIPine [Norvasc] 5 mg PO DAILY 08/23/22 09/05/22 History Ciprofloxacin HCl [Cipro] 250 mg PO Q12HR #6 tablet 08/26/22 09/05/22 Rx HYDROcodone/APAP 5-325MG [[place] 1 tab PO Q4HR PRN 3 Days #6 tab 08/26/22 09/05/22 Rx 5-325] Ketorolac [Toradol] 10 mg PO Q6HR PRN #15 tab 08/26/22 09/05/22 Rx Lifitegrast [Xiidra] 1 dropper BOTH EYES BID 09/05/22 09/05/22 History tadalafiL [Cialis] 20 mg PO Q48H PRN 09/05/22 09/05/22 History Allergies Allergy/AdvReac Type Severity Reaction Status Date / Time Penicillins Allergy Swelling Verified 09/05/22 14:37 Surgical - Exam Vital Signs Temp Pulse Resp BP Pulse Ox 98 F 67 18 139/85 98 09/05/22 14:01 09/05/22 14:01 09/05/22 14:01 09/05/22 14:01 09/05/22 14:01 General: Well developed, well nourished. No acute distress. HEENT: Head is atraumatic, normocephalic. Lungs: Respirations even and nonlabored. On RA. Abdomen/GI: Soft, non-distended. No guarding, rigidity, or abdominal tenderness. Skin: Warm and dry Neurologic: Alert and oriented 3, CN II-XII grossly intact. No focal deficits. Psychiatric: Appropriate mood and affect. Results - Labs 09/06/22 04:50 09/06/22 04:50 Abnormal Lab Results - Last 24 Hours (Table) 09/05/22 09/05/22 09/06/22 Range/Units 14:18 20:03 04:50 WBC 12.5 H (3.8-10.6) k/uL RBC 4.11 L 3.81 L (4.30-5.90) m/uL Hgb 12.9 L (13.0-17.5) gm/dL Hct 37.0 L (39.0-53.0) % Neutrophils # 9.0 H (1.3-7.7) k/uL APTT 122.4 H* (22.0-30.0) sec 09/06/22 Range/Units 04:50 WBC (3.8-10.6) k/uL RBC (4.30-5.90) m/uL Hgb (13.0-17.5) gm/dL Hct (39.0-53.0) % Neutrophils # (1.3-7.7) k/uL APTT 77.6 H (22.0-30.0) sec Diabetes panel 09/05/22 09/06/22 Range/Units 14: 04:50 Sodium 137 137 (137-145) mmol/L Potassium 4.5 4.7 (3.5-5.1) mmol/L Chloride 104 104 (98-107) mmol/L Carbon Dioxide 26 28 (22-30) mmol/L BUN 16 14 (9-20) mg/dL Creatinine 1.08 1.06 (0.66-1.25) mg/dL Glucose 95 89 (74-99) mg/dL Calcium 9.4 8.8 (8.4-10.2) mg/dL AST 33 (17-59) U/L ALT 44 (4-49) U/L Alkaline Phosphatase 71 (38-126) U/L Total Protein 7.1 (6.3-8.2) g/dL Albumin 4.2 (3.5-5.0) g/dL Calcium panel 09/05/22 09/06/22 Range/Units 14:18 04:50 Calcium 9.4 8.8 (8.4-10.2) mg/dL Albumin 4.2 (3.5-5.0) g/dL Pituitary panel 09/05/22 09/06/22 Range/Units 14:18 04:50 Sodium 137 137 (137-145) mmol/L Potassium 4.5 4.7 (3.5-5.1) mmol/L Chloride 104 104 (98-107) mmol/L Carbon Dioxide 26 28 (22-30) mmol/L BUN 16 14 (9-20) mg/dL Creatinine 1.08 1.06 (0.66-1.25) mg/dL Glucose 95 89 (74-99) mg/dL Calcium 9.4 8.8 (8.4-10.2) mg/dL Adrenal panel 09/05/22 09/06/22 Range/Units 14:18 04:50 Sodium 137 137 (137-145) mmol/L Potassium 4.5 4.7 (3.5-5.1) mmol/L Chloride 104 104 (98-107) mmol/L Carbon Dioxide 26 28 (22-30) mmol/L BUN 16 14 (9-20) mg/dL Creatinine 1.08 1.06 (0.66-1.25) mg/dL Glucose 95 89 (74-99) mg/dL Calcium 9.4 8.8 (8.4-10.2) mg/dL Total Bilirubin 0.8 (0.2-1.3) mg/dL AST 33 (17-59) U/L ALT 44 (4-49) U/L Alkaline Phosphatase 71 (38-126) U/L Total Protein 7.1 (6.3-8.2) g/dL Albumin 4.2 (3.5-5.0) g/dL - Imaging CT scan - chest: report reviewed Assessment and Plan Assessment: The patient was examined in the emergency department. He reported having some left sided chest pressure and shortness of breath that has improved. He is on a Heparin drip. His vitals are stable, he is afebrile, and he is on RA with a SPO2 of 99%. No conversational dyspnea or accessory muscle use noted. The patient's Lopez catheter was removed in the office yesterday. He is voiding, but reports some incontinence which is expected post operatively. His pain is well controlled. Hgb stable at 12.9, no leukocytosis. (1) S/P prostatectomy Current Visit: Yes Status: Acute Code(s): Z90.79 - ACQUIRED ABSENCE OF OTHER GENITAL ORGAN(S) SNOMED Code(s): 046307321 Plan: - Continue anticoagulation per primary team - Continue current pain regimen - Will continue to follow - No urological interventions warranted at this time Thank you for this consultation Impression and plan of care have been directed as dictated by the signing p michellecian. Carmita Olmedo nurse practitioner acting as scribe for signing physician. Carmita Olmedo [facility] Palliative Care/Urology [facility] [id number] Email: [email or web address] The patient was examined and interviewed by me. I concur with the above menti oned note. alvaro wynne md
--- NOTE | 2022-09-06 11:00 | P.GSCN ---
History of Present Illness Consult date: 09/06/22 History of present illness: 67 yo male admitted with a pulmonary embolus post robotic assisted radical prostatectomy by Dr Ramon 08/25/2022. He was seen yesterday and the concern for PE. A ct scan was performed and a rt PE was identified, He was admitted for anticoagulation.His cath was removed yesterday and he has a bit of incontinence as expected. Review of Systems All systems: negative - Constitutional Denies fever, Denies weight loss - EENT Eyes: denies blurred vision Ears, nose, mouth and throat: Denies dysphagia - Cardiovascular Denies chest pain, Denies shortness of breath - Respiratory Denies cough, Denies 7 - Gastrointestinal Reports as per HPI - Genitourinary Denies dysuria, Denies hematuria - Integumentary Denies rash, Denies unusual bruising - Neurological Denies headaches, Denies syncope - Hematologic/Lymphatic Denies easy bleeding, Denies easy bruising Past Medical History Past Medical History: Cancer, Hypertension, Osteoarthritis (OA) Additional Past Medical History / Comment(s): Current prostate cancer. Current UTI, on antibiotics prescribed by Dr Ramon, to be completed 08/24/22. History of Any Multi-Drug Resistant Organisms: None Reported Additional Past Surgical History / Comment(s): Cataract surgery, finger surgery, edidural pain injection in back. Past Anesthesia/Blood Transfusion Reactions: No Reported Reaction Past Psychological History: No Psychological Hx Reported Smoking Status: Never smoker Past Alcohol Use History: Rare Past Drug Use History: None Reported - Past Family History Mother Family Medical History: Cancer Father Family Medical History: Cancer Medications and Allergies Home Medications Medication Instructions Recorded Confirmed Type Metoprolol Tartrate 25 mg PO BID 08/23/22 09/05/22 History amLODIPine [Norvasc] 5 mg PO DAILY 08/23/22 09/05/22 History Ciprofloxacin HCl [Cipro] 250 mg PO Q12HR #6 tablet 08/26/22 09/05/22 Rx HYDROcodone/APAP 5-325MG [[place] 1 tab PO Q4HR PRN 3 Days #6 tab 08/26/22 09/05/22 Rx 5-325] Ketorolac [Toradol] 10 mg PO Q6HR PRN #15 tab 08/26/22 09/05/22 Rx Lifitegrast [Xiidra] 1 dropper BOTH EYES BID 09/05/22 09/05/22 History tadalafiL [Cialis] 20 mg PO Q48H PRN 09/05/22 09/05/22 History Allergies Allergy/AdvReac Type Severity Reaction Status Date / Time Penicillins Allergy Swelling Verified 09/05/22 14:37 Surgical - Exam Vital Signs Temp Pulse Resp BP Pulse Ox 98 F 67 18 139/85 98 09/05/22 14:01 09/05/22 14:01 09/05/22 14:01 09/05/22 14:01 09/05/22 14:01 Results - Labs 09/06/22 04:50 09/06/22 04:50 Abnormal Lab Results - Last 24 Hours (Table) 09/05/22 09/05/22 09/06/22 Range/Units 14:18 20:03 04:50 WBC 12.5 H (3.8-10.6) k/uL RBC 4.11 L 3.81 L (4.30-5.90) m/uL Hgb 12.9 L (13.0-17.5) gm/dL Hct 37.0 L (39.0-53.0) % Neutrophils # 9.0 H (1.3-7.7) k/uL APTT 122.4 H* (22.0-30.0) sec 09/06/22 Range/Units 04:50 WBC (3.8-10.6) k/uL RBC (4.30-5.90) m/uL Hgb (13.0-17.5) gm/dL Hct (39.0-53.0) % Neutrophils # (1.3-7.7) k/uL APTT 77.6 H (22.0-30.0) sec Diabetes panel 09/05/22 09/06/22 Range/Units 14:18 04:50 Sodium 137 137 (137-145) mmol/L Potassium 4.5 4.7 (3.5-5.1) mmol/L Chloride 104 104 (98-107) mmol/L Carbon Dioxide 26 28 (22-30) mmol/L BUN 16 14 (9-20) mg/dL Creatinine 1.08 1.06 (0.66-1.25) mg/dL Glucose 95 89 (74-99) mg/dL Calcium 9.4 8.8 (8.4-10.2) mg/dL AST 33 (17-59) U/L ALT 44 (4-49) U/L Alkaline Phosphatase 71 (38-126) U/L Total Protein 7.1 (6.3-8.2) g/dL Albumin 4.2 (3.5-5.0) g/dL Calcium panel 09/05/22 09/06/22 Range/Units 14:18 04:50 Calcium 9.4 8.8 (8.4-10.2) mg/dL Albumin 4.2 (3.5-5.0) g/dL Pituitary panel 09/05/22 09/06/22 Range/Units 14: 04:50 Sodium 137 137 (137-145) mmol/L Potassium 4.5 4.7 (3.5-5.1) mmol/L Chloride 104 104 (98-107) mmol/L Carbon Dioxide 26 28 (22-30) mmol/L BUN 16 14 (9-20) mg/dL Creatinine 1.08 1.06 (0.66-1.25) mg/dL Glucose 95 89 (74-99) mg/dL Calcium 9.4 8.8 (8.4-10.2) mg/dL Adrenal panel 09/05/22 09/06/22 Range/Units 14:18 04:50 Sodium 137 137 (137-145) mmol/L Potassium 4.5 4.7 (3.5-5.1) mmol/L Chloride 104 104 (98-107) mmol/L Carbon Dioxide 26 28 (22-30) mmol/L BUN 16 14 (9-20) mg/dL Creatinine 1.08 1.06 (0.66-1.25) mg/dL Glucose 95 89 (74-99) mg/dL Calcium 9.4 8.8 (8.4-10.2) mg/dL Total Bilirubin 0.8 (0.2-1.3) mg/dL AST 33 (17-59) U/L ALT 44 (4-49) U/L Alkaline Phosphatase 71 (38-126) U/L Total Protein 7.1 (6.3-8.2) g/dL Albumin 4.2 (3.5-5.0) g/dL Assessment and Plan Assessment: Impression: right pulmaonary embolus post RALP. Plan: from a urological stand point anticoagulation is ok We will follow.
[2022-09-06] MEDS: FAMOTIDINE 20 MG TAB PO SCH ×2 (11:59→21:44)
[2022-09-06] MEDS: amLODIPine 5 MG TAB PO SCH ×2 (11:59→12:02)
[2022-09-06] MEDS: METOPROLOL TARTRATE 25 MG TAB PO SCH ×3 (11:59→21:44)
[2022-09-06] MEDS: NON FORMULARY DRUG (Lifitegrast [Xiidra] 1 EACH Droperette) BOTH EYES SCH ×2 (13:18→22:04)
[2022-09-06] MEDS: HEPARIN SOD,PORK IN 0.45% NACL 25,000 UNIT in 0.45% NACL 1 250ML.BAG IV SCH (13:24)
[2022-09-06] MEDS: APIXABAN 5 MG TAB PO SCH ×2 (13:26→21:44)
--- NOTE | 2022-09-06 13:51 | P.PN ---
Subjective Progress Note Date: 09/06/22 patient is 67-year-old gentleman with past medical history significant for prostate cancer who recently underwent robotic radical prostatectomy on August 25. Patient was all right 2 days when he started noticing right-sided chest pressure, it was associated with shortness of breath as well. Patient noticed that his voice was also worsening as he gets easily winded. Patient denied any swelling of lower extremities. There was no complain of orthopnea or PND. No complaint of fever or chills. Patient was sent to radiology to get a computed tomography scan, radiologist was concerned about PE and patient was sent into the ER. Initial lab work in the ER showed white count 12.5, hemoglobin 13.5, platelet count 253, INR 1.0, sodium 137, potassium 4.5, BUN 16, creatinine 1.08, Patient was admitted to internal medicine service for further evaluation and treatment 09/06. Patient seen and examined. Still remaining of chest pain on taking deep breaths, complaining of shortness of breath as well. REVIEW OF SYSTEMS: CONSTITUTIONAL: No fever, no malaise,. CARDIOVASCULAR: no palpitations, no syncope. PULMONARY: no cough, GASTROINTESTINAL: No diarrhea, no nausea, no vomiting, no abdominal pain. NEUROLOGICAL: No headaches, no weakness, PHYSICAL EXAMINATION: GENERAL: The patient is alert and oriented x3, not in any acute distress. Well developed, well nourished. HEENT: Pupils are round and equally reacting to light. EOMI. No scleral icterus. No conjunctival pallor. Normocephalic, atraumatic. No pharyngeal erythema. No thyromegaly. CARDIOVASCULAR: S1 and S2 present. No murmurs, rubs, or gallops. PULMONARY: Chest is clear to auscultation, no wheezing or crackles. ABDOMEN: Soft, nontender, nondistended, normoactive bowel sounds. No palpable organomegaly. MUSCULOSKELETAL: No joint swelling or deformity. EXTREMITIES: No cyanosis, clubbing, or pedal edema. NEUROLOGICAL: Gross neurological examination did not reveal any focal deficits. SKIN: No rashes. Assessment and plan Acute PE History of prostate cancer status postrobotic radical prostatectomy Hypertension Plan; Monitor vital signs Monitor CBC Monitor CMP Continue telemetry monitoring Continue pharmacy dose heparin ultrasound of lower extremities negative for DVT Ordered 2-D echo Pulmonary recommended continuation of IV heparin for now, transitioned to oral anticoagulation at discharge for 3-6 months Urology eval the patient for the recent surgery, agreed wiht the patient getting anticoagulation DVT prophylaxis: Heparin Objective - Vital Signs Vital signs: Vital Signs Temp 98.1 F 09/06/22 04:53 Pulse 68 09/06/22 07:00 Resp 18 09/06/22 07:00 BP 116/83 09/06/22 07:00 Pulse Ox 99 09/06/22 07:00 FiO2 Intake & Output 09/05/22 09/06/22 09/06/22 18:59 06:59 18:59 Intake Total 166.459 Balance 166.459 Weight 68.039 kg Intake: Intake, IV Titration 166.459 Amount Heparin Sod,Pork in 0.45% 166.459 NaCl 25,000 unit In 0.45 % NaCl 1 250ml.bag @ 18 UNITS/KG/HR 12.247 mls/hr IV .[id number] [facility] Rx#: [id number] - Labs CBC & Chem 7: 09/06/22 04:50 09/06/22 04:50 Labs: Abnormal Lab Results - Last 24 Hours (Table) 09/05/22 09/05/22 09/06/22 Range/Units 14:18 20:03 04:50 WBC 12.5 H (3.8-10.6) k/uL RBC 4.11 L 3.81 L (4.30-5.90) m/uL Hgb 12.9 L (13.0-17.5) gm/dL Hct 37.0 L (39.0-53.0) % Neutrophils # 9.0 H (1.3-7.7) k/uL APTT 122.4 H* (22.0-30.0) sec 09/06/22 Range/Units 04:50 WBC (3.8-10.6) k/uL RBC (4.30-5.90) m/uL Hgb (13.0-17.5) gm/dL Hct (39.0-53.0) % Neutrophils # (1.3-7.7) k/uL APTT 77.6 H (22.0-30.0) sec
[2022-09-06] MEDS: SODIUM CHLORIDE 0.9% 1,000 ML IV SCH (22:04)
[2022-09-07] MEDS: NON FORMULARY DRUG (Lifitegrast [Xiidra] 1 EACH Droperette) BOTH EYES SCH (08:51)
[2022-09-07] MEDS: METOPROLOL TARTRATE 25 MG TAB PO SCH (08:51)
[2022-09-07] MEDS: APIXABAN 5 MG TAB PO SCH (08:51)
[2022-09-07] MEDS: amLODIPine 5 MG TAB PO SCH (08:51)
[2022-09-07] MEDS: FAMOTIDINE 20 MG TAB PO SCH (08:51)
[2022-09-07 08:57] VITALS: RESP 16; TEMP 97.8
[2022-09-07 09:52] LABS: Basophils % (A) 1 %; Eosinophils # (A) 0.3 k/uL (0-0.7); Eosinophils % (A) 5 %; HCT 38.1 % (39.0-53.0); HGB 12.7 gm/dL (13.0-17.5); Lymphocytes # (A) 2.1 k/uL (1.0-4.8); Lymphocytes % (A) 30 %; MCH 32.7 pg (25.0-35.0); MCHC 33.2 g/dL (31.0-37.0); MCV 98.5 fL (80.0-100.0); Mean Platelet Volume 7.1; Monocytes # (A) 0.4 k/uL (0-1.0); Monocytes % (A) 5 %; Neutrophils % (A) 57 %; Platelet Count 263 k/uL (150-450); RBC 3.87 m/uL (4.30-5.90); RDW 12.9 % (11.5-15.5); WBC 6.9 k/uL (3.8-10.6)
--- NOTE | 2022-09-07 10:06 | P.PN ---
Subjective Progress Note Date: 09/07/22 Principal diagnosis: Pulmonary embolism The patient is a 68-year-old male with a history of high volume [place] 6 (3+3) prostate cancer, initially managed with active surveillance, repeat biopsy there was increased volume of disease. On 08/25/22 he underwent a robotic-assisted lapa roscopic radical prostatectomy with Dr. Ramon. On 09/05/22 he had his follow-up appointment with Dr. Ramon and reported having right-sided pressure and shortness of breath. He was sent to the hospital and a CTA angiogram of the chest revealed several pulmonary emboli demonstrated within the right main pulmonary artery extending into the segmental branches of the right middle and lower lobes, no evidence of right heart strain. Bilateral venous duplex negative for DVT. Echocardiogram is pending. 09/06 The patient was examined in the emergency department. He reported having some left sided chest pressure and shortness of breath that has improved. He is on a Heparin drip. His vitals are stable, he is afebrile, and he is on RA with a SPO2 of 99%. No conversational dyspnea or accessory muscle use noted. The patient's Lopez catheter was removed in the office yesterday. He is voiding, but reports some incontinence which is expected post operatively. His pain is well controlled. Hgb stable at 12.9, no leukocytosis. Objective - Vital Signs Vital signs: Vital Signs Temp 97.8 F 09/07/22 08:00 Pulse 61 09/07/22 08:00 Resp 16 09/07/22 08:00 BP 125/72 09/07/22 08:00 Pulse Ox 99 09/07/22 08:00 FiO2 Intake & Output 09/06/22 09/07/22 09/07/22 18:59 06:59 18:59 Intake Total 118 780 Output Total 1 Balance 118 779 Weight 68.039 kg Intake: Oral 118 780 Output: Urine 1 Other: Voiding Method Toilet # Voids 1 - Exam General: Well developed, well nourished. No acute distress. HEENT: Head is atraumatic, normocephalic. Lungs: Respirations even and nonlabored. On RA. Abdomen/GI: Soft, non-distended. No guarding, rigidity, or abdominal tenderness. Skin: Warm and dry Neurologic: Alert and oriented 3, CN II-XII grossly intact. No focal deficits. Psychiatric: Appropriate mood and affect. - Labs CBC & Chem 7: 09/07/22 08:55 09/07/22 08:55 Assessment and Plan Assessment: The patient is resting in bed and appears comfortable. No urological interventions warranted at this time. The patient may be discharged from a urological standpoint. (1) S/P prostatectomy Current Visit: Yes Status: Acute Code(s): Z90.79 - ACQUIRED ABSENCE OF OTHER GENITAL ORGAN(S) SNOMED Code(s): 814789450 Plan: - Continue anticoagulation per primary team - No urological interventions warranted at this time - Patient may be discharged from a urological standpoint Impression and plan of care have been directed as dictated by the signing physician. Carmita Olmedo nurse practitioner acting as scribe for signing physician. Carmita Olmedo [facility] [id number] Email: [email or web address] Patient has been evaluated and examined by me. I concur with the above note. He can be seen by in 6 weeks.
[2022-09-07 10:13] LABS: Albumin 3.7 g/dL (3.5-5.0); Calcium 9.1 mg/dL (8.4-10.2); Potassium 4.2 mmol/L (3.5-5.1); Total Bilirubin 0.7 mg/dL (0.2-1.3); Total Protein 6.3 g/dL (6.3-8.2)
[2022-09-07 12:25] VITALS: BP 120/78; PULSE 52
--- NOTE | 2022-09-07 12:44 | P.PN ---
Subjective Progress Note Date: 09/07/22 I'm seeing this patient in new consultation today 09/06/2022, while in the emergency room for a pulmonary embolism. Patient is a 67-year-old - [place]ian male with past medical history of prostate cancer with recent prostatectomy on August 25, hypertension, GERD. Patient started experiencing shortness of breath and right-sided chest pressure soon after his prostatectomy. Patient's symptoms have progressively worsened, and patient was sent to the hospital yesterday. Patient denies any previous DVT or PE, clotting disorders, recent travel, or family history of DVT or PE. Patient's chest CTA showed several pulmonary emboli within the right main pulmonary artery extending into the segmental branches of the right middle and lower lobes. There is no evidence of heart strain. Troponins negative 1. Bilateral lower extremity venous Doppler negative for DVTs. Echocardiogram is pending. ECG showed normal sinus rhythm without any ischemic changes. Patient is currently resting comfortably, on room air, in no acute distress. Patient has a high intensity heparin infusion running per protocol, currently infusing at 1021 units per hour. Patient's CBC on arrival shows a WBC count of 12.5, hemoglobin 13.5, hematocrit 39.9, platelets 253,000. Patient's BMP was unremarkable. Normal saline infusing at KVO. Vital signs are stable. On today's evaluation of 09/07/2022, the patient is doing well. No new complaints. No shortness of breath or chest pain and is ambulating. He is already on anticoagulation with Eliquis starting dose of 10 mg by mouth twice a day. He is on room air oxygen.Labs from today are all within normal limits. No significant abnormalities are noted. Hemoglobin stable at 12.7. Objective - Vital Signs Vital signs: Vital Signs Temp 97.8 F 09/07/22 08:00 Pulse 52 L 09/07/22 12:00 Resp 16 09/07/22 12:00 BP 120/78 09/07/22 12:00 Pulse Ox 100 09/07/22 12:00 FiO2 Intake & Output 09/06/22 09/07/22 09/07/22 18:59 06:59 18:59 Intake Total 118 780 Output Total 1 Balance 118 779 Weight 68.039 kg Intake: Oral 118 780 Output: Urine 1 Other: Voiding Method Toilet Toilet # Voids 1 - Exam GENERAL EXAM: Alert, 67-year-old -Ivorian male, comfortable in no apparent distress. HEAD: Normocephalic and atraumatic EYES: Normal reaction of pupils, equal size. NOSE: Clear with pink turbinates. THROAT: No erythema or exudates. NECK: No masses, no JVD. CHEST: No chest wall deformity. LUNGS: Equal air entry with no crackles, wheeze, rhonchi or dullness. On room air. No conversational dyspnea or accessory muscle use.. CVS: S1 and S2 normal with no audible murmur, regular rhythm. No extra heart sounds ABDOMEN: No hepatosplenomegaly, active bowel sounds, no guarding or rigidity. SPINE: No scoliosis or deformity SKIN: No rashes CENTRAL NERVOUS SYSTEM: No focal deficits, tone is normal in all 4 extremities. EXTREMITIES: There is no peripheral edema, clubbing, or cyanosis. Peripheral pulses are intact. - Labs CBC & Chem 7: 09/07/22 08:55 09/07/22 08:55 Labs: Abnormal Lab Results - Last 24 Hours (Table) 09/07/22 09/07/22 Range/Units 08:55 08:55 RBC 3.87 L (4.30-5.90) m/uL Hgb 12.7 L (13.0-17.5) gm/dL Hct 38.1 L (39.0-53.0) % Carbon Dioxide 31 H (22-30) mmol/L Glucose 104 H (74-99) mg/dL ALT 51 H (4-49) U/L Assessment and Plan Assessment: Acute right-sided pulmonary embolism. Patient's chest CTA showed several pulmonary emboli within the right main pulmonary artery extending into the segmental branches of the right middle and lower lobes. No evidence of right heart strain. Hypertension History of prostate cancer with recent robotic radical prostatectomy on August 25. 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
--- NOTE | 2022-09-08 08:24 | P.DS ---
Providers Date of admission: 09/05/22 14:58 Attending physician: Rudolph Messina MD Consults: 09/05/22 14:48 Consult Physician Routine Consulting Provider: Girish Segura Consult Reason/Comments: pe Do you want consulting provider notified?: Yes 09/05/22 14:50 Consult Physician Urgent Consulting Provider: Ryan Ramon Consult Reason/Comments: post op care Do you want consulting provider notified?: Yes Primary care physician: Nicholas Martinez Hospital Course: Diagnoses: Acute pulmonary embolism History of prostate cancer status post radical prostatectomy Hypertension Hospital course: patient is 67-year-old -[place] gentleman with past medical history significant for prostate cancer who recently underwent robotic radical prostatectomy on August 25. Patient was all right 2 days when he started noticing right-sided chest pressure, it was associated with shortness of breath as well. Patient noticed that his voice was also worsening as he gets easily winded. Patient denied any swelling of lower extremities. There was no complain of orthopnea or PND. No complaint of fever or chills. Patient was sent to radiology to get a computed tomography scan, radiologist was concerned about PE and patient was sent into the ER. Patient evaluated by pulmonary service and started on heparin drip and switched to Eliquis 10 mg with plan to lower the dose to 5 mg in one week, patient was instructed extensively about the dose of his medication and he verbalized understanding and acceptance. Also evaluated by urologist and his stable and his urologist recommend Follow-up in 4-6 weeks, this was discussed with the urologist electron beam welder setter today Dr. Orozco at patient bedside. Who cleared him For discharge. Patient also back to baseline and he denies any chest pain or dyspnea, no change in urine or bowel habits. No fever. Patient is eager to go home today. History of anticoagulation including but not limited to the risk of bleeding are explained to the patient extensively and he verbalized understanding and acceptance Patient was cleared for discharge by pulmonary service and urology services Problems and management plan were discussed with the patient and he verbalized understanding and acceptance Patient was found stable and can be discharged home in guarded prognosis however he needs follow-up as an outpatient. Patient was instructed to follow up with PCP Dr. Chavarria within one week and patient agrees Patient also instructed to follow up with television maintenance man Dr. Templeton and one week Also patient referred to cruise guide/oncologist as an outpatient Dr. Silvestre follow-up in 7-10 days post discharge and he verbalized understanding and acceptance to call and make his own appointments Physical exam Gen: patient is a AAOx3, no distress CVS: S1-S2, RRR, no murmur Lungs: B/L CTA, no wheezing Abdomen: soft, no distention, no tenderness, positive bowel sounds Extremity: no leg edema or induration Time spent more than 35 minutes Plan - Discharge Summary Discharge Rx Participant: No New Discharge Prescriptions: New Apixaban [Eliquis] 5 mg PO DIRECTED #70 tablet Continue amLODIPine [Norvasc] 5 mg PO DAILY Metoprolol Tartrate 25 mg PO BID HYDROcodone/APAP 5-325MG [[place] 5-325] 1 tab PO Q4HR PRN 3 Days #6 tab PRN Reason: Pain Lifitegrast [Xiidra] 1 dropper BOTH EYES BID Discontinued Ketorolac [Toradol] 10 mg PO Q6HR PRN #15 tab PRN Reason: Pain Ciprofloxacin HCl [Cipro] 250 mg PO Q12HR #6 tablet No Action tadalafiL [Cialis] 20 mg PO Q48H PRN PRN Reason: e.d. Discharge Medication List Metoprolol Tartrate 25 mg PO BID 08/23/22 [History] amLODIPine [Norvasc] 5 mg PO DAILY 08/23/22 [History] HYDROcodone/APAP 5-325MG [[place] 5-325] 1 tab PO Q4HR PRN 3 Days #6 tab 08/26/22 [Rx] Lifitegrast [Xiidra] 1 dropper BOTH EYES BID 09/05/22 [History] tadalafiL [Cialis] 20 mg PO Q48H PRN 09/05/22 [History] Apixaban [Eliquis] 5 mg PO DIRECTED #70 tablet 09/06/22 [Rx] Follow up Appointment(s)/Referral(s): Royce iSlvestre MD [STAFF PHYSICIAN] - 10 Days (cruise guide / oncologist (blood disease and tumor doctor)) Juan Peterson MD [Primary Care Provider] - 1-2 days Ryan Ramon MD [STAFF PHYSICIAN] - 1 Week Girish Segura DO [Doctor of Osteopathic Medicine] - 1 Week Patient Instructions/Handouts: Pulmonary Embolism (DC) Activity/Diet/Wound Care/Special Instructions: heart healthy diet activity is restricted till you see your doctor Discharge Disposition: HOME SELF-CARE
== END 2022-09-07 15:20 | disposition home or self-care (01) ==
LOC: EC 13:58 → 3SCARD 14:58
PROVIDERS: ADMIT Internal Medicine; ATTEND Internal Medicine
DX: I26.99 Other pulmonary embolism without acute cor pulmonale (principal); I10 Essential (primary) hypertension; K21.9 Gastro-esophageal reflux disease without esophagitis; M19.90 Unspecified osteoarthritis, unspecified site; R32 Unspecified urinary incontinence; Z79.899 Other long term (current) drug therapy; Z88.0 Allergy status to penicillin; Z85.46 Personal history of malignant neoplasm of prostate; Z90.79 Acquired absence of other genital organ(s); Z87.440 Personal history of urinary (tract) infections; Z98.49 Cataract extraction status, unspecified eye; Z98.890 Other specified postprocedural states; Z80.9 Family history of malignant neoplasm, unspecified
CPT/HCPCS: 96366 ×2; 96376; 96365; 99291; 36415; 94760; 93005; 93306; 97161; 97165; 80053 ×2; 80048; 83605; 84484; 85025 ×3; 85610; 85730 ×3; 93970; G0378 ×3; J1644 ×2

== ENCOUNTER → 2022-09-05 | Outpatient (CLI) | payer BC ==
--- NOTE | 2022-09-05 13:58 | CT ---
EXAMINATION TYPE: CT angio chest CT DLP: 199.6 mGycm, Automated exposure control for dose reduction was used. DATE OF EXAM: 09/05/2022 1:39 PM COMPARISON: None CLINICAL INDICATION:Male, 67 years old with history of R06.02; Chest pain x2-3 days. TECHNIQUE/CONTRAST: CTA scan of the thorax is performed with IV Contrast, patient injected with 66ml mL of Isovue 300, pu lmonary embolism protocol. MIP images are created and reviewed. FINDINGS: Pulmonary Artery: There are filling defects demonstrated within the right main pulmonary artery exten ding into the segmental pulmonary arteries of the right middle and lower lobes. The pulmonary artery is of normal size. Lungs/Pleura: No evidence of focal consolidation, pleural effusion or pneumothorax. No suspicious pul monary nodule or mass. Airway: Large airways are patent. Heart: Heart is within normal limits for size. No pericardial effusion. No evidence for right heart s train. Vasculature: No evidence of aortic aneurysm. Mediastinum: No gross evidence of adenopathy. Musculoskeletal: No acute osseous abnormalities Soft Tissues: Superficial 1 cm lesion along the left anterior chest wall favored to represent a sebac eous cyst (series 4, image 25). Lower neck: No significant findings. Upper Abdomen: Right renal cyst measuring up to 2.7 cm. IMPRESSION: Several pulmonary emboli demonstrated within the right main pulmonary artery extending into the segme ntal branches of the right middle and lower lobes. No evidence for right heart strain. Attempted to contact ordering physician without success at time of dictation. Will send the patient t o the ER.
== END | disposition home or self-care (01) ==
LOC: RADCTMAIN 12:22
PROVIDERS: ATTEND Urology
DX: I26.99 Other pulmonary embolism without acute cor pulmonale (principal)
CPT/HCPCS: 82565; 84520; 71275; 36415; Q9967

== ENCOUNTER 2022-10-16 09:30 | Emergency (ER) | payer BC ==
[2022-10-16 10:07] LABS: Basophils % (A) 1 %; Eosinophils # (A) 0.2 k/uL (0-0.7); Eosinophils % (A) 4 %; HCT 44.5 % (39.0-53.0); HGB 14.8 gm/dL (13.0-17.5); Lymphocytes # (A) 2.1 k/uL (1.0-4.8); Lymphocytes % (A) 44 %; MCH 33.4 pg (25.0-35.0); MCHC 33.4 g/dL (31.0-37.0); MCV 99.9 fL (80.0-100.0); Mean Platelet Volume 7.1; Monocytes # (A) 0.3 k/uL (0-1.0); Monocytes % (A) 5 %; Neutrophils # (A) 2.1 k/uL (1.3-7.7); Neutrophils % (A) 44 %; Platelet Count 269 k/uL (150-450); RBC 4.45 m/uL (4.30-5.90); RDW 12.8 % (11.5-15.5); WBC 4.8 k/uL (3.8-10.6)
--- NOTE | 2022-10-16 10:13 | XR ---
EXAMINATION TYPE: XR chest 2V DATE OF EXAM: 10/16/2022 10:10 AM COMPARISON: 09/05/2022 CT TECHNIQUE: XR chest 2V Frontal and lateral views of the chest. CLINICAL INDICATION:Male, 67 years old with history of Chest Pain; FINDINGS: Lungs/Pleura: There is no evidence of pleural effusion, focal consolidation, or pneumothorax. Pulmonary vascularity: Unremarkable. Heart/mediastinum: Cardiomediastinal silhouette is unremarkable. Musculoskeletal: No acute osseous pathology. IMPRESSION: No acute cardiopulmonary disease/process.
[2022-10-16 10:18] LABS: Albumin 4.5 g/dL (3.5-5.0); Calcium 9.5 mg/dL (8.4-10.2); Magnesium 1.7 mg/dL (1.6-2.3); Potassium 4.1 mmol/L (3.5-5.1); Total Bilirubin 0.8 mg/dL (0.2-1.3); Total Protein 7.4 g/dL (6.3-8.2)
[2022-10-16 10:19] LABS: Prothrombin Time 10.6 sec (9.0-12.0)
--- NOTE | 2022-10-16 10:36 | ED ---
General Adult HPI - General Chief complaint: Chest Pain Stated complaint: chest pain Time Seen by Provider: 10/16/22 09:44 Source: patient Mode of arrival: ambulatory Limitations: no limitations - History of Present Illness Initial comments: Dictation was produced using [employer] dictation software. please excuse any grammatical, word or spelling errors. Chief Complaint: 67-year-old male presents emergency Department with left-sided chest pain History of Present Illness: This is 67-year-old male who has no significant comorbidities. Presents emergency Department with left-sided chest pain. Patient out at the coagulation medication due to iatrogenic pulmonary embolism from recent prostate surgery. Pietro believes patient has had mild ache to his left lower chest. Nonradiating. Not associated diaphoresis or nausea. Pain is not reproduced with inspiration or barriers truncal movements patient has any cardiac history. The ROS documented in this emergency department record has been reviewed and confirmed by me. Those systems with pertinent positive or negative responses have been documented in the HPI. All other systems are other negative and/or noncontributory. - Related Data Home Medications Medication Instructions Recorded Confirmed Metoprolol Tartrate 25 mg PO BID 08/23/22 09/05/22 amLODIPine [Norvasc] 5 mg PO DAILY 08/23/22 09/05/22 Lifitegrast [Xiidra] 1 dropper BOTH EYES BID 09/05/22 09/05/22 tadalafiL [Cialis] 20 mg PO Q48H PRN 09/05/22 09/05/22 Previous Rx's Medication Instructions Recorded HYDROcodone/APAP 5-325MG [[place] 1 tab PO Q4HR PRN 3 Days #6 tab 08/26/22 5-325] Apixaban [Eliquis] 5 mg PO DIRECTED #70 tablet 09/06/22 Allergies Allergy/AdvReac Type Severity Reaction Status Date / Time Penicillins Allergy Swelling Verified 10/16/22 09:41 Review of Systems ROS Statement: Those systems with pertinent positive or pertinent negative responses have been documented in the HPI. ROS Other: All systems not noted in ROS Statement are negative. Past Medical History Past Medical History: Cancer, Hypertension, Osteoarthritis (OA) Additional Past Medical History / Comment(s): Current prostate cancer. Current UTI, on antibiotics prescribed by Dr Ramon, to be completed 08/24/22. History of Any Multi-Drug Resistant Organisms: None Reported Past Surgical History: Prostate Surgery Additional Past Surgical History / Comment(s): Cataract surgery, finger surgery, edidural pain injection in back. Past Anesthesia/Blood Transfusion Reactions: No Reported Reaction Past Psychological History: No Psychological Hx Reported Smoking Status: Never smoker Past Alcohol Use History: Rare Past Drug Use History: None Reported - Past Family History Mother Family Medical History: Cancer Father Family Medical History: Cancer General Exam - General Exam Comments Initial Comments: PHYSICAL EXAM: General Impression: Alert and oriented x3, not in acute distress HEENT: Normocephalic atraumatic, extra-ocular movements intact, pupils equal and reactive to light bilaterally, mucous membranes moist. Cardiovascular: Heart regular rate and rhythm Chest: Able to complete full sentences, no retractions, no tachypnea Abdomen: abdomen soft, non-tender, non-distended, no organomegaly Musculoskeletal: Pulses present and equal in all extremities, no peripheral edema Motor: no focal deficits noted Neurological: CN II-XII grossly intact, no focal motor or sensory deficits noted Skin: Intact with no visualized rashes Psych: Normal affect and mood Limitations: no limitations Course Vital Signs 10/16/22 10/16/22 10/16/22 09:37 10:20 11:48 Temperature 98.1 F Pulse Rate 75 62 62 Respiratory 18 18 18 Rate Blood Pressure 150/92 135/89 117/78 O2 Sat by Pulse 99 100 100 Oximetry EKG Findings - EKG Comments: EKG Findings:: My EKG interpretation: Ventricular rate 69, sinus rhythm,. 123, QRS 84, QTC 377. No MS prolongation, no QTC prolongation, no ST or T-wave changes noted. . Overall, this EKG is unremarkable Medical Decision Making - Medical Decision Making Was pt. sent in by a medical professional or institution (, PA, LEGAL SUPPORT SPECIALIST, urgent c are, hospital, or shelter...) When possible be specific @ -No Did you speak to anyone other than the patient for history (EMS, parent, family, police, friend...)? What history was obtained from this source @ -No Did you review nursing and triage notes (agree or disagree)? Why? @ -I reviewed and agree with nursing and triage notes Were old charts reviewed (outside hosp., previous admission, EMS record, old EKG, old radiological studies, urgent care reports/EKG's, shelter records)? Report findings @ -No old charts were reviewed Differential Diagnosis (chest pain, altered mental status, abdominal pain women, abdominal pain men, vaginal bleeding, musculoskeletal, weakness, fever, dyspnea, syncope, headache, dizziness, GI bleed, back pain, seizure, CVA, palpatations, mental health)? @ -Differential Chest Pain: Stable Angina, Unstable Angina, STEMI, NSTEMI Aortic Dissection, Pneumothorax, Musculoskeletal, Esophageal Spasm GERD, Cholecystitis, Pancreatitis, Zoster, this is not meant to be an all-inclusive list. EKG interpreted by me (3pts min.). @ -see above X-rays interpreted by me (1pt min.). @ -Chest x-ray is nonacute CT interpreted by me (1pt min.). @ -None done U/S interpreted by me (1pt. min.). @ -None done What testing was considered but not performed or refused? (CT, X-rays, U/S, labs)? Why? @ -None What meds were considered but not given or refused? Why? @ -None Did you discuss the management of the patient with other professionals (professionals i.e. , PA, LEGAL SUPPORT SPECIALIST, lab, RT, psych nurse, psychotherapist social worker, application coordinator, teacher, electronic warfare officer, wrapper caser)? Give summary @ -No Was smoking cessation discussed for >3mins.? @ -No Was critical care preformed (if so, how long)? @ -No Were there social determinants of health that impacted care today? How? (Homelessness, low income, unemployed, alcoholism, drug addiction, transportation, low edu. Level, literacy, decrease access to med. care, detention, rehab)? @ -No Was there de-escalation of care discussed even if they declined (Discuss DNR or withdrawal of care, Hospice)? DNR status @ -No What co-morbidities impacted this encounter? (DM, HTN, Smoking, COPD, CAD, Cancer, CVA, ARF, Chemo, Hep., AIDS, mental health diagnosis, sleep apnea, morbid obesity)? @ -None Was patient admitted / discharged? Hospital course, mention meds given and route, prescriptions, significant lab abnormalities, going to OR and other pertinent info. @ -67-year-old male with no significant past medical history aside from iatrogenic pulmonary embolism due to prostate surgery presents to the ER for atypical chest pain. Patient has no high-risk features. Vital signs are stable. EKG is nonischemic. Laboratory evaluation unremarkable. Troponins n egative. Disposition options were discussed with patient is agreeable for discharge. Advised follow-up with primary care doctor. Return precautions discussed. Patient discharged Undiagnosed new problem with uncertain prognosis? @ -No Drug Therapy requiring intensive monitoring for toxicity (Heparin, Nitro, Insulin, Cardizem)? @ -No Were any procedures done? @ -No Diagnosis/symptom? Acute, or Chronic, or Acute on Chronic? Uncomplicated (without systemic symptoms) or Complicated (systemic symptoms)? @ -1. Atypical chest pain Side effects of treatment? @ -No Exacerbation, Progression, or Severe Exacerbation? @ -No Poses a threat to life or bodily function? How? (Chest pain, [place], [place], pneumonia, PE, COPD, DKA, ARF, appy, cholecystitis, CVA, Diverticulitis, Homicidal, Suicidal, threat to staff... and all critical care pts) @ -no - Lab Data Result diagrams: 10/16/22 09:57 10/16/22 09:57 Lab Results 10/16/22 10/16/22 10/16/22 Range/Units 09:57 09:57 09:57 WBC 4.8 (3.8-10.6) k/uL RBC 4.45 (4.30-5.90) m/uL Hgb 14.8 (13.0-17.5) gm/dL Hct 44.5 (39.0-53.0) % MCV 99.9 (80.0-100.0) fL MCH 33.4 (25.0-35.0) pg MCHC 33.4 (31.0-37.0) g/dL RDW 12.8 (11.5-15.5) % Plt Count 269 (150-450) k/uL MPV 7.1 Neutrophils % 44 % Lymphocytes % 44 % Monocytes % 5 % Eosinophils % 4 % Basophils % 1 % Neutrophils # 2.1 (1.3-7.7) k/uL Lymphocytes # 2.1 (1.0-4.8) k/uL Monocytes # 0.3 (0-1.0) k/uL Eosinophils # 0.2 (0-0.7) k/uL Basophils # 0.0 (0-0.2) k/uL PT 10.6 (9.0-12.0) sec INR 1.0 (<1.2) APTT 26.0 (22.0-30.0) sec Sodium 140 (137-145) mmol/L Potassium 4.1 (3.5-5.1) mmol/L Chloride 102 (98-107) mmol/L Carbon Dioxide 28 (22-30) mmol/L Anion Gap 10 mmol/L BUN 17 (9-20) mg/dL Creatinine 1.07 (0.66-1.25) mg/dL Est GFR (CKD-EPI)AfAm 83 (>60 ml/min/1.73 sqM) Est GFR (CKD-EPI)NonAf 72 (>60 ml/min/1.73 sqM) Glucose 148 H (74-99) mg/dL Calcium 9.5 (8.4-10.2) mg/dL Magnesium 1.7 (1.6-2.3) mg/dL Total Bilirubin 0.8 (0.2-1.3) mg/dL AST 23 (17-59) U/L ALT 20 (4-49) U/L Alkaline Phosphatase 55 (38-126) U/L Troponin I (0.000-0.034) ng/mL Total Protein 7.4 (6.3-8.2) g/dL Albumin 4.5 (3.5-5.0) g/dL 10/16/22 Range/Units 09:57 WBC (3.8-10.6) k/uL RBC (4.30-5.90) m/uL Hgb (13.0-17.5) gm/dL Hct (39.0-53.0) % MCV (80.0-100.0) fL MCH (25.0-35.0) pg MCHC (31.0-37.0) g/dL RDW (11.5-15.5) % Plt Count (150-450) k/uL MPV Neutrophils % % Lymphocytes % % Monocytes % % Eosinophils % % Basophils % % Neutrophils # (1.3-7.7) k/uL Lymphocytes # (1.0-4.8) k/uL Monocytes # (0-1.0) k/uL Eosinophils # (0-0.7) k/uL Basophils # (0-0.2) k/uL PT (9.0-12.0) sec INR (<1.2) APTT (22.0-30.0) sec Sodium (137-145) mmol/L Potassium (3.5-5.1) mmol/L Chloride (98-107) mmol/L Carbon Dioxide (22-30) mmol/L Anion Gap mmol/L BUN (9-20) mg/dL Creatinine (0.66-1.25) mg/dL Est GFR (CKD-EPI)AfAm (>60 ml/min/1.73 sqM) Est GFR (CKD-EPI)NonAf (>60 ml/min/1.73 sqM) Glucose (74-99) mg/dL Calcium (8.4-10.2) mg/dL Magnesium (1.6-2.3) mg/dL Total Bilirubin (0.2-1.3) mg/dL AST (17-59) U/L ALT (4-49) U/L Alkaline Phosphatase (38-126) U/L Troponin I <0.012 (0.000-0.034) ng/mL Total Protein (6.3-8.2) g/dL Albumin (3.5-5.0) g/dL Disposition Clinical Impression: Chest pain Disposition: HOME SELF-CARE Condition: Good Instructions (If sedation given, give patient instructions): Chest Pain (ED) Is patient prescribed a controlled substance at d/c from ED?: No Referrals: Juan Peterson MD [Primary Care Provider] - 1-2 days Time of Disposition: 11:30
[2022-10-16 12:53] VITALS: BP 110/80; PULSE 68; RESP 16; TEMP 98
== END 2022-10-16 12:52 | disposition home or self-care (01) ==
LOC: EC 09:30
DX: R07.89 Other chest pain (principal); I10 Essential (primary) hypertension; Z88.0 Allergy status to penicillin; Z79.899 Other long term (current) drug therapy
CPT/HCPCS: 36415; 71046; 80053; 83735; 84484; 85025; 85610; 85730; 93005; 99285

== ENCOUNTER → 2023-12-04 | Outpatient (CLI) | payer BC ==
[2023-12-04 15:30] LABS: BUN/Creat Ratio 14.75 Ratio (12.00-20.00); Blood Urea Nitrogen 17.7 mg/dL (9.0-27.0); Calcium 9.5 mg/dL (8.7-10.3); Chloride 103 mmol/L (96-109); Glucose 105 mg/dL (70-110); Potassium 4.8 mmol/L (3.5-5.5); Sodium 140 mmol/L (135-145)
[2023-12-04 16:06] LABS: Appearance,Urine Clear (Clear); Bilirubin,Urine Negative (Negative); Blood,Urine Negative (Negative); Color,Urine Yellow (Yellow); Ketones,Urine Negative (Negative); Nitrite,Urine Negative (Negative); Specific Gravity,Urine 1.019 (1.001-1.030)
[2023-12-04 17:02] LABS: Basophils # (A) 0.05 X 10*3/uL (0.00-0.10); Basophils % (A) 0.7 %; Eosinophils # (A) 0.15 X 10*3/uL (0.04-0.35); Eosinophils % (A) 2.1 %; HCT 45.2 % (39.6-50.0); Lymphocytes # (A) 2.59 X 10*3/uL (0.90-5.00); Lymphocytes % (A) 36.9 %; MCH 32.9 pg (27.0-32.0); MCHC 33.2 g/dL (32.0-37.0); MCV 99.1 FL (80.0-97.0); Mean Platelet Volume 10.4 FL (9.5-12.2); Monocytes # (A) 0.69 X 10*3/uL (0.20-1.00); Monocytes % (A) 9.8 %; NRBC Per 100 WBC 0 X 10*3/uL (0.00-0.01); Neutrophils # (A) 3.51 X 10*3/uL (1.80-7.70); Neutrophils % (A) 50.1 %; Platelet Count 184 X 10*3/uL (140-440); RBC 4.56 X 10*6/uL (4.40-5.60); RDW 12.6 % (11.5-14.5); WBC 7.02 X 10*3/uL (4.50-10.00)
== END | disposition home or self-care (01) ==
LOC: LABPAT 10:30
PROVIDERS: ATTEND Urology
DX: Z01.812 Encounter for preprocedural laboratory examination (principal); N52.9 Male erectile dysfunction, unspecified
CPT/HCPCS: 80048; 81003; 85025; 87086

== ENCOUNTER → 2023-12-12 | Day surgery (SDC) | payer BC, OTHER ==
--- NOTE | 2023-12-11 14:25 | P.HPIHPCON ---
History of Present Illness H&P Date: 12/11/23 Chief Complaint: Erectile dysfunction This is a 68-year-old male with history of erectile dysfunction, this occurred following a robotic radical prostatectomy. Has failed PDE 5 inhibitors and intracavernosal injections. He is interested in proceeding with penile prosthesis. Aware of the risk which includes but not limited to bleeding, infection, device malfunction. Discussed the potential mechanical failure of the device. Discussed with him also if the device has been infected then all device will have to be removed. Discussed once this is placed there is no other way for him to be able to obtain an erection. Patient and partner unsatasfication was also discussed Risk of anesthesia was also discussed with him in details. The procedure and the outcome was reviewed with him in details. Consent for Procedure: I have explained the operation/procedure to the patient, including the risks, benefits, side effects, alternative therapies (including not receiving the proposed treatment or service), the likelihood of the patient achieving his/her goals, and potential recuperation problems for the procedure/sedation/analgesia, as well as any blood products, if indicated. I also explained to the patient the risks, benefits and side effects of the alternatives, as well as the risks related to not receiving the proposed procedure, care, treatment, or services. Past Medical History Past Medical History: Cancer, Hypertension, Osteoarthritis (OA), Pulmonary Embolus (PE) Additional Past Medical History / Comment(s): Prostate cancer. History of Any Multi-Drug Resistant Organisms: ESBL Date of last positivie culture/infection: 08/15/22 MDRO Source:: Urine Past Surgical History: Prostate Surgery Additional Past Surgical History / Comment(s): prostatectomy. Cataract surgery, finger surgery, edidural pain injection in back. Past Anesthesia/Blood Transfusion Reactions: No Reported Reaction Smoking Status: Never smoker - Past Family History Mother Family Medical History: Cancer Father Family Medical History: Cancer Medications and Allergies Home Medications Medication Instructions Recorded Confirmed Type Metoprolol Tartrate 25 mg PO BID 08/23/22 12/08/23 History amLODIPine [Norvasc] 5 mg PO QAM 08/23/22 12/11/23 History Allergies Allergy/AdvReac Type Severity Reaction Status Date / Time Penicillins Allergy Swelling Verified 12/08/23 11:41 adhesive tape AdvReac Rash/Hives Verified 12/11/23 08:35 Surgical - Exam - General no distress, no pain - Eyes normal ocular movement, no pale - Respiratory normal expansion, normal respiratory effort - Abdomen Abdomen: soft, non tender Assessment and Plan Assessment: OR for inflatable penile prosthesis
[~2023-12-12] MED LIST changes: -CLINDAMYCIN 600 MG in DEXTROSE 5% IN WATER 50 ML IVPB PRN; -GENTAMICIN 120 MG in SODIUM CHLORIDE 0.9% 100 ML IVPB PRN; +GLYCOPYRROLATE 0.2 MG/ML 2 ML VIAL ONE; -HEPARIN SODIUM,PORCINE/PF 5,000 UNIT/0.5 ML SYRINGE SQ PRN; +LIDOCAINE 1% (10MG/ML) FOR IV START INTRADERMA PRN; +MIDAZOLAM 2 MG/2 ML VIAL ONE; +NEOSTIGMINE 1 MG/ML 10 ML VIAL ONE; +PHENYLEPHRINE-0.9% NACL SYG 1,000 MCG/10 ML SYRINGE ONE; +PROPOFOL 10 MG/ML 20 ML VIAL IV ONE; +ROCURONIUM 10 MG/ML (5 ML VIAL) IV ONE; +SUCCINYLCHOLINE CHLORIDE 200 MG/10 ML VIAL IV ONE; +droPERidol 5 MG/2 ML VIAL IVP ONE; +fentaNYL (PF) 50 MCG/ML 2 ML AMP ONE
[2023-12-12] MEDS: ONDANSETRON 4 MG/2 ML VIAL IVP ONE (07:04)
[2023-12-12] MEDS: LACTATED RINGERS 1,000 ML IV SCH (07:04)
[2023-12-12] MEDS: DEXAMETHASONE SOD PHOSPHATE 4 MG/ML 1 ML VIAL IV ONE (07:04)
[2023-12-12] MEDS: VANCOMYCIN 750 MG in SODIUM CHLORIDE 0.9% 250 ML IVPB PRN (07:04)
[2023-12-12] MEDS: IV FLUID CONTINUATION 1,000 ML IV ONE (07:12)
[2023-12-12] MEDS: GENTAMICIN 120 MG in SODIUM CHLORIDE 0.9% 100 ML IVPB PRN (07:30)
[2023-12-12] MEDS: GENTAMICIN 80 MG in SODIUM CHLORIDE 0.9% 500 ML 500 ML IRRIGATION ONE (08:41)
[2023-12-12] MEDS: ceFAZolin 1,000 MG in SODIUM CHLORIDE 0.9% 1,000 ML IRRIGATION ONE (08:42)
[2023-12-12 09:16] VITALS: TEMP 97.2
--- NOTE | 2023-12-12 09:19 | P.OP ---
Date of Procedure: 12/12/23 Preoperative Diagnosis: Erectile dysfunction Postoperative Diagnosis: Same Procedure(s) Performed: Insertion of inflatable penile prosthesis Implants: [employer] scientific inflatable penile prostheses Anesthesia: MARIAA Surgeon: Ryan Ramon Linen Supervisor #1: Silvio Denny Estimated Blood Loss (ml): 50 Pathology: none sent Condition: stable Disposition: PACU Indications for Procedure: This is a 68-year-old male with history of erectile dysfunction, this occurred following a robotic radical prostatectomy. Has failed PDE 5 inhibitors and intracavernosal injections. He is interested in proceeding with penile prosthesis. Aware of the risk which includes but not limited to bleeding, infection, device malfunction. Discussed the potential mechanical failure of the device. Discussed with him also if the device has been infected then all device will have to be removed. Discussed once this is placed there is no other way for him to be able to obtain an erection. Patient and partner unsatasfication was also discussed Risk of anesthesia was also discussed with him in details. The procedure and the outcome was reviewed with him in details. Description of Procedure: Patient brought to the operating room, general anesthesia was induced. He was prepped and draped in sterile fashion and placed in the supine position. 14 Lopez catheter was placed with return of clear urine. Next an incision was made along the infra pubic region, superior to the penis. Subcutaneous tissue was dissected down using cautery. Dissection was carried down to the corporal bodies. Next both corporal bodies were dissected down. Stay stitch was placed using 2-0 PDS on each corporal body. Next a corporotomy was performed on the right side. The corporal body was dilated using the Hegar dilators, the corporal body was dilated up to 14 Marshallese on each side. Attention was then carried to the left side and a corporotomy was performed on that side and that side was also dilated to 14 [place] proximally and distally.There was no evidence of urethral perforation or corporal perforation. At this point each side was measured and on the right side it measured at 13 cm distally and 8 cm proximally, on the left and measured 13 cm distally and 8 cm proximally. Decision was made to use the 18 cm CX AMS 700, with 3 cm proximal rear-tip senior software development engineer. At this time attention was carried to placement of the reservoir. The fascia was incised sharply, and using blunt dissection the space was created subfascially along the retropubic space. Next the reservoir was placed in the retropubic space and was inflated with 100 cc, there was no back tension with inflation. At this time the fascia was closed in running fashion using 2-0 Vicryl. Next both cylinders were placed into the corporal bodies, and each cylinder was inflated and there was no evidence of kinking. Next the corporotomies were closed using 2-0 PDS in running fashion. At this point space was created in the right scrotal for the pump. Next all connections were made. The IPP was recycled and it was inflating without any difficulties, there was no evidence of any kinking. At this time the subcutaneous tissue was closed using 2-0 Vicryl in running fashion. Skin was closed using 4-0 Monocryl, skin glue was applied to the incision. Patient was awakened from anesthesia and taken to recovery in stable condition
[2023-12-12] MEDS: HYDROmorphone 0.5 MG/0.5 ML SYRINGE IVP PRN (09:31)
[2023-12-12] MEDS: KETOROLAC 15 MG/ML 1 ML VIAL IVP STA (09:34)
[2023-12-12 11:22] VITALS: RESP 16
[2023-12-12 11:45] VITALS: BP 124/83; PULSE 74
== END | disposition home or self-care (01) ==
LOC: OR 06:16
PROVIDERS: ATTEND Urology
DX: N52.9 Male erectile dysfunction, unspecified (principal); Z85.46 Personal history of malignant neoplasm of prostate; Z90.79 Acquired absence of other genital organ(s); I10 Essential (primary) hypertension; E78.5 Hyperlipidemia, unspecified; Z86.711 Personal history of pulmonary embolism; Z88.0 Allergy status to penicillin; Z91.09 Other allergy status, other than to drugs and biological substances; Z79.899 Other long term (current) drug therapy
CPT/HCPCS: 54405; J3370; J1580 ×2; J1100; J2405; J0690; J1885; J1170